=== PATIENT | female | born 1945 | race Caucasian/White ===

== ENCOUNTER 2017-05-01 12:43 | Emergency (ER) | payer MEDICARE, OTHER ==
[~2017-05-01] VITALS: Ht 157.5 cm; Wt 126.1 kg
[~2017-05-01 12:43] MED LIST: ACTOS 30 MG TAB30 MG; ADULT LOW DOSE81 MG; ALBUTEROL2.5 MG/31 INH; AMLODIPINE BESY10 MG; BACTRIM DS TAB1 EACH PO; BAYER CHEWABLE81 MG PO; BUSPIRONE HCL10 MG PO; CARDIZEM CD 30300 M1 PO; CIPRO250 M1 PO; COLACE100 MG PO; COMBIVENT RESPIM4 GM IH; COMBIVENT RESPIM4 GM INH; COZAAR 50 MG TA50 M2; COZAAR 50 MG TA50 M2 PO; COZAAR100 MG PO; CRESTOR20 MG PO; DALIRESP500 MCG PO; DILTIAZEM PO; ELIQUIS5 MG PO; ERGOCALCIF50000 UNIT; EXFORGEHCT; GLUCOPHAGE XR500 MG PO; GLUCOPHAGE500 MG PO; HYDROCHLOROTHIA25 M2 PO; IBUPROFEN 600600 M1 PO; INSULIN ASPART; IRON325; IRON325 PO; KEFLEX500 MG PO; KLOR-CON 1010 MEQ PO; LANTUS SUBQ; LANTUSSOLASTAR; LASIX 20 MG TAB20 MG; LASIX 40 MG TAB40 M1 PO; LASIX 40 MG TAB40 M2 PO; LEVAQUIN 500 M500 M2 PO; LEVAQUIN 500 M500 MG PO; LOPRESSOR50 PO; MUCINEX600 MG PO; NEURONTIN 300300 M1 PO; NEXIUM40 MG; NEXIUM40 MG PO; NIASPAN 500 MG500 M1; NORCO 5-325 TA1 EACH PO; NORTRIPTYLINE H50 M3 PO; NOVOLOG FL100 UNIT/M; NOVOLOG FL100 UNIT/M SUBQ; NOVOLOG100 UNIT/1 SUBQ; NYSTATIN 1100000 U/M TOP; NYSTATIN15 G3; ONDANSETRON HCL4 M2 PO; PAMELOR50 MG PO; POTASSIUM GLUCO99 M2 PO; PRED FORTE 1% EY5 M1 INTRAOCULR; PRED-FORTE OPHTH1 M1 OPHTHALMIC; PRIMIDONE 250M250 M1 PO; PRIMIDONE50 MG PO; PRINIVIL20 MG; PROTONIX40 M1 PO; PROVENTIL HFA6.7 G1 INH; PROVENTIL17 G1; SINGULAIR 10 MG10 M1 PO; SLOW RELEASE I140 MG; SYNTHROID137 MCG; SYNTHROID150 MCG PO; TESSALON PERLE100 MG PO; TOPROL XL50 MG PO; TRESIBA FL200 UNIT/1 SUBQ; UNSURE OF MEDS; VENTOLIN HFA 1818 GM INH; VICODIN 5-5001 EACH; VITAMIN D250000 UNIT; VITAMIN D3400 UNIT PO; WELCHOL3.75 GM; XIBROM5 ML; ZOCOR40 MG; ZOFRAN 4 MG ORAL4 MG PO; ZOFRAN4 MG PO; ZOLOFT100 MG; ZOLOFT100 MG PO; ZOLOFT50 MG PO; ZPAK PO; ZYRTEC10 M5 PO; novolog flexpen
[2017-05-01 13:23] LABS: URINE BILIRUBIN NEGATIVE (Negative); URINE BLOOD NEGATIVE (Negative); URINE CLARITY CLEAR; URINE COLOR YELLOW; URINE GLUCOSE-RANDOM NEGATIVE (Negative); URINE KETONES NEGATIVE (Negative); URINE LEUKOCYTES-REFLEX TRACE (Negative); URINE NITRITE-REFLEX NEGATIVE (Negative); URINE PROTEIN NEGATIVE (Negative); URINE UROBILINOGEN 0.2 E.U./dl (0.2-1.0)
[2017-05-01 13:34] LABS: ABSOLUTE BASOPHILS 0.1 thou/uL (0.0-0.2); ABSOLUTE EOSINOPHILS 0.1 thou/uL (0.0-0.7); ABSOLUTE LYMPHOCYTES 1.4 thou/uL (0.8-5.3); ABSOLUTE MONOCYTES 0.7 thou/uL (0.0-1.2); BASOPHILS 0.6 %; EOSINOPHILS 0.9 %; HEMATOCRIT 35.7 % (37.0-47.0); HEMOGLOBIN 11.8 gm/dL (12.0-15.0); LYMPHOCYTES 10.3 %; MCH 28.2 pg (26.0-34.0); MCHC 32.9 g/dL (28.0-37.0); MCV 85.5 fL (80.0-100.0); MONOCYTES 5.3 %; MPV 8.6 fl. (7.2-11.1); NUCLEATED RBCS 0 /100WBC; PLATELET COUNT* 297 thou/uL (150-400); POLYS 82.9 %; RBC 4.18 mil/uL (4.20-5.00); RDW-CV 14.1 % (10.5-14.5); WBC 13.3 thou/uL (4.0-11.0)
[2017-05-01 13:34] LABS: CRYSTALS None Seen /LPF (None Seen); HYALINE CASTS 0-3 Few /LPF (None Seen); MUCUS 0-3 Light strn/LPF (None Seen); SQUAMOUS >10 Many /LPF (0-3)
[2017-05-01 13:35] LABS: URINE RBC 0-2 Rare /HPF (0-2); URINE WBC-REFLEX 0-5 Rare /HPF (0-5)
[2017-05-01 13:54] LABS: ANION GAP 8 mmol/L (7-16); BUN 19 mg/dL (7-18); CALCIUM 8.4 mg/dL (8.5-10.1); CHLORIDE 100 mmol/L (98-107); CO2 28 mmol/L (21-32); CREATININE 1.2 mg/dL (0.6-1.3); GLUCOSE 214 mg/dL (70-99); POTASSIUM 4.2 mmol/L (3.5-5.1); SODIUM 136 mmol/L (136-145)
[2017-05-01 14:01] LABS: ALBUMIN 3.3 g/dL (3.4-5.0); ALKALINE PHOSPHATASE 118 U/L (46-116); LIPASE 71 U/L (73-393); SGOT 17 U/L (15-37); SGPT 24 U/L (30-65); TOTAL BILIRUBIN 0.7 mg/dL (<0.1-1.0); TOTAL PROTEIN 7.8 g/dL (6.4-8.2); TROPONIN-I LEVEL <0.06 ng/mL (<0.06)
[2017-05-01] MEDS ORDERED: DIFLUCAN200 MG PO (14:37)
[2017-05-01] MEDS ORDERED: NYSTATIN 100,0015 G1 TOP (14:37)
[2017-05-01] MEDS ORDERED: MACROBID 100 M100 M1 PO (14:38)
[2017-05-01 14:51] VITALS: BP 141/60
== END 2017-05-01 14:52 | disposition home or self-care (01) ==
LOC: M.ERS 12:43
PROVIDERS: Physician Assistant
DX: N39.0 Urinary tract infection, site not specified (principal); B37.2 Candidiasis of skin and nail; R33.9 Retention of urine, unspecified; J44.9 Chronic obstructive pulmonary disease, unspecified; E03.9 Hypothyroidism, unspecified; E11.40 Type 2 diabetes mellitus with diabetic neuropathy, unspecified; Z79.4 Long term (current) use of insulin; Z91.040 Latex allergy status; Z88.2 Allergy status to sulfonamides; Z91.012 Allergy to eggs; Z77.22 Contact with and (suspected) exposure to environmental tobacco smoke (acute) (chronic)

== ENCOUNTER 2017-07-13 16:59 | Inpatient (IN) | payer MEDICARE, OTHER ==
[~2017-07-13] VITALS: Ht 157.5 cm; Wt 124.8 kg
[~2017-07-13 16:59] MED LIST changes: +DIFLUCAN200 MG PO; +MACROBID 100 M100 M1 PO; +NYSTATIN 100,0015 G1 TOP
[2017-07-13 17:05] VITALS: BP 190/86
[2017-07-13 18:32] LABS: ABSOLUTE BASOPHILS 0.1 thou/uL (0.0-0.2); ABSOLUTE LYMPHOCYTES 1.3 thou/uL (0.8-5.3); ABSOLUTE MONOCYTES 0.9 thou/uL (0.0-1.2); ABSOLUTE NEUTROPHILS 9.4 thou/uL (1.6-8.1); BASOPHILS 0.7 %; EOSINOPHILS 0.4 %; HEMATOCRIT 38.7 % (37.0-47.0); HEMOGLOBIN 12.6 gm/dL (12.0-15.0); LYMPHOCYTES 11.1 %; MCHC 32.5 g/dL (28.0-37.0); MCV 83.1 fL (80.0-100.0); MONOCYTES 7.5 %; MPV 8.5 fl. (7.2-11.1); NUCLEATED RBCS 0 /100WBC; PLATELET COUNT* 288 thou/uL (150-400); POLYS 80.3 %; RBC 4.65 mil/uL (4.20-5.00); RDW-CV 14.3 % (10.5-14.5); WBC 11.7 thou/uL (4.0-11.0)
[2017-07-13 18:41] LABS: ANION GAP 8 mmol/L (7-16); BUN 12 mg/dL (7-18); CALCIUM 8.3 mg/dL (8.5-10.1); CHLORIDE 101 mmol/L (98-107); CO2 27 mmol/L (21-32); CREATININE 0.9 mg/dL (0.6-1.3); GLUCOSE 212 mg/dL (70-99); POTASSIUM 3.7 mmol/L (3.5-5.1); SODIUM 136 mmol/L (136-145)
[2017-07-13 18:48] LABS: ALBUMIN 3.2 g/dL (3.4-5.0); ALKALINE PHOSPHATASE 111 U/L (46-116); SGOT 10 U/L (15-37); SGPT 10 U/L (30-65); TOTAL BILIRUBIN 0.9 mg/dL (<0.1-1.0); TOTAL PROTEIN 7.6 g/dL (6.4-8.2); TROPONIN-I LEVEL <0.06 ng/mL (<0.06)
[2017-07-13 19:56] LABS: URINE BILIRUBIN NEGATIVE (Negative); URINE BLOOD 1+ (Negative); URINE CLARITY CLOUDY; URINE COLOR YELLOW; URINE GLUCOSE-RANDOM TRACE (Negative); URINE KETONES NEGATIVE (Negative); URINE LEUKOCYTES-REFLEX 1+ (Negative); URINE NITRITE-REFLEX POSITIVE (Negative); URINE PROTEIN 2+ (Negative); URINE SPECIFIC GRAVITY 1.025 (1.005-1.030)
[2017-07-13 20:00] VITALS: BP 157/69
[2017-07-13 20:11] LABS: SQUAMOUS >10 Many /LPF (0-3)
[2017-07-13 20:12] LABS: BACTERIA-REFLEX >30 Many /HPF (None Seen); URINE WBC-REFLEX 6-15 Few /HPF (0-5)
[2017-07-13 20:14] LABS: HYALINE CASTS 0-3 Few /LPF (None Seen); MUCUS None Seen strn/LPF (None Seen)
[2017-07-13 20:15] LABS: AMORPHOUS URATES Many /LPF (None Seen); URINE RBC 0-2 Rare /HPF (0-2)
[2017-07-13 21:05] VITALS: BP 150/64
[2017-07-14] VITALS: BP 177/65
--- NOTE | 2017-07-14 03:43 | NUR ---
PATIENT RESTING MOST OF NIGHT. ADMITED TO THE FLOOR AT 2200 FOR PNEUMONIA AND UTI. DAUGHTER REPORTS PATIENT HAS HISTORY OF GETTING URINARY TRACT INFECTIONS AND WAS ADMITTED BEFORE. LIVES ALONE, FAMILY ASSIST. HOME HEALTH FOR REHAB IN PAST. PATIENT WAS 94 PERCENT O2 SAT ON 2 LITERS. TAKING OFF TO WALK TO BR WITHOUT DIFFICULTIES. BED IN LOW POSITION, CALL LIGHT IN REACH, BED ALARM ON. NO SIGN OF DISTRESS. CONT. WITH PLAN OF CARE.
[2017-07-14 04:00] VITALS: BP 191/79
[2017-07-14 05:17] LABS: HEMOGLOBIN 12.8 gm/dL (12.0-15.0); MCH 27.5 pg (26.0-34.0); MCHC 32.7 g/dL (28.0-37.0); MCV 84.1 fL (80.0-100.0); MPV 8.8 fl. (7.2-11.1); RBC 4.63 mil/uL (4.20-5.00); RDW-CV 14.3 % (10.5-14.5); WBC 10.4 thou/uL (4.0-11.0)
[2017-07-14 05:53] LABS: ALBUMIN 3.3 g/dL (3.4-5.0); CALCIUM 8.7 mg/dL (8.5-10.1); CREATININE 1.2 mg/dL (0.6-1.3); POTASSIUM 4.2 mmol/L (3.5-5.1); TOTAL BILIRUBIN 0.7 mg/dL (<0.1-1.0); TOTAL PROTEIN 7.5 g/dL (6.4-8.2)
[2017-07-14 08:00] VITALS: BP 166/56
--- NOTE | 2017-07-14 10:17 | EKG ---
[place] [address] ELECTROCARDIOGRAM REPORT Name: MOUSTAPHA HOLM Room: [address] IN [facility].#: [id number] Admission: 07/13/17 Attend Phys: Connor Campbell Discharge: Date of : 43 Report #: [id number] THIS REPORT FOR: //name// [facility] ED Test Date: 2017-07-13 Test Time: 18:46:10 Pat Name: MOUSTAPHA HOLM Department: Room: Gender: F Sandstone Splitter: Analy GALO : 1945 Requested By: Zulema Sevilla Order Number: [id number] MD: Nolberto Simpson Measurements Intervals [place] Rate: 77 P: 187 ID: [id number] QRS: -75 QRSD: 175 T: 99 QT: 456 QTc: 517 Interpretive Statements Ventricular-paced complexes No further analysis attempted due to paced rhythm Baseline wander in lead(s) V4 Compared to ECG 11/21/2015 21:50:06 Atrial fibrillation no longer present Electronically Signed On 07-14-2017 10:17:11 CDT by Nolberto Simpson [email or web address] <ELECTRONICALLY SIGNED> By: Nolberto Simpson MD, [facility] 07/14/17 1017 1846 1846 Nolberto Simpson MD, [facility] /EPI
--- NOTE | 2017-07-14 11:24 | NUR ---
RECEIVED REPORT FROM NANCY AND ASSUMED CARE OF PT @ 0900.PT IS A/O X3,VSS,TRACING V PACED WITH PVC ON THE MONITOR.LUNG SOUNDS ARE CLEAR DIMINSHED.LAST BM WAS TODAY.IV RIGHT FOREARM PATENT AND SALINE LOCKED.PT IS CALM AND COOPERATIVE WITH NO C/O PAIN AT TIME OF ASSESSMENT.PT IS UP AD PRASHANTH TO BATHROOM.PT LEFT RESTING IN BED WITH CALL LIGHT IN PLACE. WILL CONTINUE TO MONITOR.
[2017-07-14 12:39] VITALS: BP 123/42
--- NOTE | 2017-07-14 13:22 | NUR ---
Nutrition: Consult received for "DM." Pt on insulin. BG 355, albumin 3.3. H/o OBE, COPD, CHF. Wt: 277#. Pt not in room at time of visit. Diet changed to CHO controled with 2gm Na restriction. RD left handouts on DM diet on bedside table for pt. RD contact info provided.
--- NOTE | 2017-07-14 15:22 | NUR ---
Pt is A&O. Resides at home alone. Independent with IADLS. Family provides meals and assist with cooking and family does all of the driving. Pt has a walker and cane that she can use if needed. Wears home o2, provided through [employer] and a cpap through [employer]. Hx of HH with [facility] and [facility]. Pt anticipates dc tomorrow. No needs anticiapted.
--- NOTE | 2017-07-14 15:44 | 2DMMODE ---
[place] [address] 2 D/M-MODE ECHOCARDIOGRAM Name: MOUSTAPHA HOLM Room: [address] IN [facility]#: [id number] Admission: 07/13/17 Attend Phys: Morgan Chua Discharge: Date of : 43 Date of Service: 07/14/17 1543 Report #: [id number] THIS REPORT FOR: //name// APPROVED REPORT Study performed: 07/14/2017 10:57:52 EXAM: Comprehensive 2D, Doppler, and color-flow Echocardiogram Patient Location: In-Patient Room #: [facility] Status: routine BSA: 2.20 HR: 80 bpm BP: 166/56 mmHg Rhythm: NSR Other Information Study Quality: Technically Difficult Technically limited study due to body habitus. Indications Dyspnea Echo Enhancing Agent Indication: Endocardial border delineation Agent(s) / Amount(s) Used: Optison 3 cc 2D Dimensions IVSd: 13.83 (7-11mm) LVOT Diam: 19.06 (18-24mm) LVDd: 55.77 mm PWd: 9.11 (7-11mm) Ascending Ao: 29.32 (22-36mm) LVDs: 37.19 (25-40mm) Aortic Root: 30.03 mm Volumes Left Atrial Volume (Systole) LA ESV Index: 30.00 mL/m2 Aortic Valve AoV Peak Félix.: 2.04 m/s AO Peak Gr.: 16.66 mmHg LVOT Max P.91 mmHg AO Mean Gr.: 10.55 mmHg LVOT Mean P.46 mmHg LVOT Max V: 0.85 m/s AO V2 VTI: 44.68 cm LVOT Mean V: 0.56 m/s CLAUDE (VTI): 1.23 cm2 LVOT V1 VTI: 19.32 [place] [address] 2 D/M-MODE ECHOCARDIOGRAM Name: MOUSTAPHA HOLM Room: [address] IN ..#: [id number] Admission: 07/13/17 Attend Phys: Morgan Chua Discharge: Date of : 43 Date of Service: 07/14/17 1543 Report #: [id number] Mitral Valve E/A Ratio: 1.45 MV Decel. Time: 223.05 ms MV E Max Félix.: 1.56 m/s MV PHT: 64.68 ms MVA (PHT): 3.40 cm2 TDI E/Lateral E': 31.20 E/Medial E': 19.50 Medial E' Félix.: 0.08 m/s Lateral E' Félix.: 0.05 m/s Pulmonary Valve PV Peak Félix.: 1.04 m/s PV Peak Gr.: 4.34 mmHg Tricuspid Valve TR Peak Gr.: 37.50 mmHg RVSP: 42.00 mmHg Left Ventricle The left ventricle is normal size. severe hypokinesis noted of the apex There is normal left ventricular wall thickness. Left ventricular systolic function is mildly decreased. LVEF is 40-45%. The left ventricular diastolic function is normal. Right Ventricle The right ventricle is normal size. The right ventricular systolic function is normal. Pacemaker lead is present in the right ventricle. Atria Left atrium is mildly dilated. The right atrium size is normal. Aortic Valve Moderate aortic valve sclerosis. No aortic regurgitation is present. Mild aortic stenosis. Mitral Valve There is mitral annular calcification. Trace mitral regurgitation. No evidence of mitral valve stenosis. Tricuspid Valve The tricuspid valve is normal in structure. Trace tricuspid regurgitation. The RVSP is 40-45 mmHg. [place] [address] 2 D/M-MODE ECHOCARDIOGRAM Name: MOUSTAPHA HOLM Room: [address] IN [facility]#: [id number] Admission: 07/13/17 Attend Phys: Morgan Chua Discharge: Date of : 43 Date of Service: 07/14/17 1543 Report #: [id number] Pulmonic valve is not well visualized. There is no pulmonic valvular regurgitation. Great Vessels The aortic root is normal in size. IVC is not well visualized. Pericardium There is no pericardial effusion. <Conclusion> LVEF is 40-45%. Left atrium is mildly dilated. Mild aortic stenosis. severe hypokinesis noted of the apex Trace tricuspid regurgitation. The RVSP is 40-45 mmHg. <ELECTRONICALLY SIGNED> By: Nolberto Simpson MD, FACC 07/14/17 1543 1543 1543 Nolberto Simpson MD, FACC /INF
[2017-07-14 16:18] VITALS: BP 128/49
--- NOTE | 2017-07-14 18:36 | NUR ---
VSS,CARDIAC MONITORING IN PLACE WITH NO CHANGES THIS SHIFT.PT REMAINS ON 2L O2 NC.PT PROGRESSING TOWARDS GOALS.PT HAS DENIED PAIN THIS SHIFT.IV ANTIBIOTICS COMPLETED.BLOOD GLUCOSE MONITORED.PT HAS BEEN UP AD PRASHANTH IN ROOM.HOURLY ROUNDING COMPLETED FOR PT SAFETY.CALL LIGHT IN PLACE.WILL CONTINUE TO MONITOR FOR DURATION OF SHIFT.
[2017-07-14 20:30] VITALS: BP 147/63
[2017-07-15] VITALS: BP 120/39
[2017-07-15 04:00] VITALS: BP 180/62
[2017-07-15 04:55] LABS: HEMATOCRIT 36.9 % (37.0-47.0); HEMOGLOBIN 12.1 gm/dL (12.0-15.0); MCHC 32.9 g/dL (28.0-37.0); MPV 9.2 fl. (7.2-11.1); NUCLEATED RBCS 0 /100WBC; PLATELET COUNT* 295 thou/uL (150-400); RDW-CV 14.7 % (10.5-14.5); WBC 15.5 thou/uL (4.0-11.0)
[2017-07-15 05:04] LABS: CREATININE 1.1 mg/dL (0.6-1.3); MAGNESIUM 1.8 mg/dL (1.8-2.4); POTASSIUM 4.3 mmol/L (3.5-5.1)
[2017-07-15 05:47] LABS: CALCIUM 8.3 mg/dL (8.5-10.1)
[2017-07-15 06:10] LABS: ABSOLUTE LYMPHOCYTES 1.2 thou/uL (0.8-5.3); ABSOLUTE NEUTROPHILS 14.3 thou/uL (1.6-8.1)
[2017-07-15 06:11] LABS: PLATELET ESTIMATE ADEQUATE
--- NOTE | 2017-07-15 06:49 | NUR ---
ASSUMED PT CARE AT 1930. ASSESSMENT COMPLETED CHARTED. PT GOT UP DURING THE NIGHT SEVERAL TIMES TO USE RESTROOM. NO C/O PAIN OR DISCOMFORT. WILL CONTINUE TO MONITOR.
[2017-07-15 07:55] VITALS: BP 144/55
--- NOTE | 2017-07-15 07:55 | NUR ---
RECEIVED REPORT FROM JANI AND ASSUMED REPORT OF PT @ 8449.PT IS A/O X4,VSS,TRACING V PACED ON THE MONITOR.LUNG SOUNDS ARE CLEAR DIMINSHED.LAST BM WAS TODAY.IV RIGHT FOREARM PATENT AND SALINE LOCKED.PT IS CALM AND COOPERATIVE WITH NO C/O PAIN AT TIME OF ASSESSMENT.PT IS UP AD PRASHANTH IN ROOM.PT LEFT RESTING AT EDGE OF BED WITH CALL LIGHT IN PLACE.WILL CONTINUE TO MONITOR FOR DURATION OF SHIFT. SAW PT AND OK FOR DISCHARGE.CARDIAC REHAB NURSE CALLED TO SEE PT AND SET UP CARDIAC REHAB FOLLOW UP APPOINTMENT.
[2017-07-15] MEDS ORDERED: CEFDINIR300 MG PO (09:45)
[2017-07-15] MEDS ORDERED: PREDNISONE 20 M20 MG PO (09:45)
[2017-07-15] MEDS ORDERED: LASIX 40 MG TAB40 M1 PO (09:45)
[2017-07-15] MEDS ORDERED: AZITHROMYCIN 2250 MG PO (09:45)
[2017-07-15 10:25] VITALS: BP 144/55
--- NOTE | 2017-07-15 12:37 | NUR ---
PT OK FOR DISCHARGE.FOLLOW UP APPOINTMENT SCHEDULED FOR 07/21/17 @ 1045 WITH PCP.PAPERWORK COMPLETED AND GIVEN TO PT.SCRIPTS GIVEN WITH EDUCATION.ALL PERSONAL BELONGINGS PACKED AND TAKEN WITH PT.IV REMOVED.HEART MONITOR REMOVED AND RETURNED TO NURSING STATION.PT WHEELED OUT BY NURSING STAFF TO PERSONAL VEHICLE.
== END 2017-07-15 12:40 | disposition home or self-care (01) | DRG 291 ==
LOC: M.ERS 16:59 → M.2W 20:20 → M.TBA-ER 20:20 → M.2W 21:38
PROVIDERS: Emergency Medicine; Internal Medicine; Personal Emergency Response Attendant; ADMIT Internal Medicine
DX: I50.33 Acute on chronic diastolic (congestive) heart failure (principal); J96.21 Acute and chronic respiratory failure with hypoxia; J84.9 Interstitial pulmonary disease, unspecified; J44.1 Chronic obstructive pulmonary disease with (acute) exacerbation; Z68.43 Body mass index [BMI] 50.0-59.9, adult; J44.0 Chronic obstructive pulmonary disease with (acute) lower respiratory infection; H54.62 Unqualified visual loss, left eye, normal vision right eye; E11.9 Type 2 diabetes mellitus without complications; E03.9 Hypothyroidism, unspecified; E11.40 Type 2 diabetes mellitus with diabetic neuropathy, unspecified; F32.9 Major depressive disorder, single episode, unspecified; G47.33 Obstructive sleep apnea (adult) (pediatric); E66.01 Morbid (severe) obesity due to excess calories; Z95.0 Presence of cardiac pacemaker; Z88.2 Allergy status to sulfonamides; Z88.8 Allergy status to other drugs, medicaments and biological substances; Z91.012 Allergy to eggs; Z91.040 Latex allergy status; Z82.49 Family history of ischemic heart disease and other diseases of the circulatory system; I35.0 Nonrheumatic aortic (valve) stenosis; I34.0 Nonrheumatic mitral (valve) insufficiency; Z79.899 Other long term (current) drug therapy

== ENCOUNTER 2017-08-08 14:58 | Emergency (ER) | payer MEDICARE, OTHER ==
[~2017-08-08] VITALS: Ht 157.5 cm; Wt 123.4 kg
[~2017-08-08 14:58] MED LIST changes: +AZITHROMYCIN 2250 MG PO; +CEFDINIR300 MG PO; +PREDNISONE 20 M20 MG PO
[2017-08-08] MEDS ORDERED: KEFLEX500 M1 PO (15:36)
[2017-08-08 15:49] VITALS: BP 160/66
== END 2017-08-08 15:49 | disposition home or self-care (01) ==
LOC: M.ERS 14:58
DX: L03.116 Cellulitis of left lower limb (principal); J44.9 Chronic obstructive pulmonary disease, unspecified; F32.9 Major depressive disorder, single episode, unspecified; E03.9 Hypothyroidism, unspecified; I50.9 Heart failure, unspecified; E11.40 Type 2 diabetes mellitus with diabetic neuropathy, unspecified; Z77.22 Contact with and (suspected) exposure to environmental tobacco smoke (acute) (chronic); Z91.040 Latex allergy status; Z88.1 Allergy status to other antibiotic agents; Z91.012 Allergy to eggs; Z79.4 Long term (current) use of insulin

== ENCOUNTER 2017-09-07 23:06 | Emergency (ER) | payer MEDICARE, OTHER ==
[~2017-09-07] VITALS: Ht 162.6 cm; Wt 127.0 kg
[~2017-09-07 23:06] MED LIST changes: +KEFLEX500 M1 PO
[2017-09-07 23:48] VITALS: BP 154/64
== END 2017-09-07 23:48 | disposition home or self-care (01) ==
LOC: M.ERS 23:06
DX: R04.0 Epistaxis (principal); F32.9 Major depressive disorder, single episode, unspecified; G47.33 Obstructive sleep apnea (adult) (pediatric); E66.01 Morbid (severe) obesity due to excess calories; J44.9 Chronic obstructive pulmonary disease, unspecified; E03.9 Hypothyroidism, unspecified; E11.40 Type 2 diabetes mellitus with diabetic neuropathy, unspecified; I50.30 Unspecified diastolic (congestive) heart failure; J96.11 Chronic respiratory failure with hypoxia; Z88.5 Allergy status to narcotic agent; Z91.040 Latex allergy status; Z88.2 Allergy status to sulfonamides; Z91.012 Allergy to eggs; Z68.42 Body mass index [BMI] 45.0-49.9, adult; Z79.4 Long term (current) use of insulin

== ENCOUNTER 2017-09-14 22:27 | Inpatient (IN) | payer MEDICARE, OTHER ==
[~2017-09-14] VITALS: Ht 157.5 cm; Wt 126.1 kg
[2017-09-14 22:28] VITALS: BP 201/63
[2017-09-14 23:05] LABS: ABSOLUTE BASOPHILS 0.1 thou/uL (0.0-0.2); ABSOLUTE EOSINOPHILS 0.2 thou/uL (0.0-0.7); ABSOLUTE MONOCYTES 0.7 thou/uL (0.0-1.2); ABSOLUTE NEUTROPHILS 6.8 thou/uL (1.6-8.1); BASOPHILS 1.2 %; EOSINOPHILS 1.6 %; HEMATOCRIT 38.2 % (37.0-47.0); HEMOGLOBIN 12.5 gm/dL (12.0-15.0); MCH 27.3 pg (26.0-34.0); MCHC 32.7 g/dL (28.0-37.0); MCV 83.7 fL (80.0-100.0); MONOCYTES 7.2 %; NUCLEATED RBCS 0 /100WBC; PLATELET COUNT* 316 thou/uL (150-400); RBC 4.56 mil/uL (4.20-5.00); RDW-CV 15.3 % (10.5-14.5); WBC 9.8 thou/uL (4.0-11.0)
[2017-09-14 23:14] LABS: ANION GAP 8 mmol/L (7-16); BUN 13 mg/dL (7-18); CALCIUM 8.8 mg/dL (8.5-10.1); CHLORIDE 103 mmol/L (98-107); CO2 27 mmol/L (21-32); CREATININE 1.1 mg/dL (0.6-1.3); GLUCOSE 399 mg/dL (70-99); POTASSIUM 4.2 mmol/L (3.5-5.1); SODIUM 138 mmol/L (136-145)
[2017-09-14 23:15] LABS: URINE BILIRUBIN NEGATIVE (Negative); URINE BLOOD TRACE (Negative); URINE CLARITY CLEAR; URINE COLOR YELLOW; URINE GLUCOSE-RANDOM 3+ (Negative); URINE KETONES NEGATIVE (Negative); URINE LEUKOCYTES-REFLEX TRACE (Negative); URINE NITRITE-REFLEX NEGATIVE (Negative); URINE PROTEIN 1+ (Negative); URINE UROBILINOGEN 0.2 E.U./dl (0.2-1.0)
[2017-09-14 23:21] LABS: ALBUMIN 3.1 g/dL (3.4-5.0); ALKALINE PHOSPHATASE 136 U/L (46-116); SGOT 12 U/L (15-37); SGPT 15 U/L (30-65); TOTAL BILIRUBIN 0.5 mg/dL (<0.1-1.0); TOTAL PROTEIN 7.2 g/dL (6.4-8.2); TROPONIN-I LEVEL <0.06 ng/mL (<0.06)
[2017-09-14 23:28] LABS: CASTS None Seen /LPF (None Seen); SQUAMOUS >10 Many /LPF (0-3)
[2017-09-14 23:30] LABS: CRYSTALS None Seen /LPF (None Seen); URINE RBC 3-10 Few /HPF (0-2)
[2017-09-15 01:25] VITALS: BP 164/80
[2017-09-15 02:35] LABS: HEMOGLOBIN 12.5 gm/dL (12.0-15.0); MCH 27.3 pg (26.0-34.0); MCHC 32.1 g/dL (28.0-37.0); MCV 84.9 fL (80.0-100.0); MPV 9.5 fl. (7.2-11.1); RBC 4.6 mil/uL (4.20-5.00); RDW-CV 15.3 % (10.5-14.5); WBC 11.6 thou/uL (4.0-11.0)
[2017-09-15 03:08] LABS: ALBUMIN 3.2 g/dL (3.4-5.0); CALCIUM 8.4 mg/dL (8.5-10.1); TOTAL BILIRUBIN 0.5 mg/dL (<0.1-1.0); TOTAL PROTEIN 6.9 g/dL (6.4-8.2)
--- NOTE | 2017-09-15 06:44 | NUR ---
Pt admitted from ED at 0130. Denies pain/nausea/diarrhea. VSS, though SBP 160. Afib/flutter w/ V-paced complexes per EKG; not on telemetry. Pt has UTI. Reports she is hopeful of being discharged today. Will continue to monitor.
[2017-09-15 07:55] VITALS: BP 165/85
--- NOTE | 2017-09-15 11:00 | NUR ---
Pt is A&O. Resides at home alone. Supportive family. Pt is independent with ADLs, Pt stated that her children normally bring her meals, but Pt is able to clean her home. Children take her to and from appts/errands. Pt wears home o2 through [facility] and has a cpap through [employer]. Pt has a walker, cane and wc at home that she can use. Hx of [facility] and [facility] HH. Pt to dc to home today. CM contacted [facility] and they do not have any nurse's available for at least 1 week, CM will fax referral to [facility]. Family to transport home and bring portable tank. Following.
--- NOTE | 2017-09-15 11:07 | NUR ---
RECEIVED REPORT FROM DEBBIE AND ASSUMED CARE OF PT @ 6588.PT IS A/O,VSS,MED-SURG STATUS.LUNG SOUNDS ARE CLEAR DIMINSHED.PT REMAINS ON 2L O2 NC.LAST BM WAS YESTERDAY.IV LEFT HAND PATENT WITH FLUIDS RUNNING.PT IS CLAM AND COOPERATIVE WITH NO C/O PAIN.PT IS UP WITH ASSIST OF ONE TO BATHROOM.PT LEFT SITTING ON EDGE OF BED WITH FAMILY AT BEDSIDE.WILL CONTINUE TO MONITOR.
--- NOTE | 2017-09-15 11:16 | EKG ---
[place] [address] ELECTROCARDIOGRAM REPORT Name: MOUSTAPHA HOLM Room: [address] ADM IN .R.#: [id number] Admission: 09/15/17 Attend Phys: Elo Romo MD Discharge: Date of : 43 Report #: [id number] THIS REPORT FOR: //name// [facility] ED Test Date: 2017-09-14 Test Time: 23:45:21 Pat Name: MOUSTAPHA HOLM Department: Room: [facility] Gender: F Assembly Repairer: AJ : 1945 Requested By: Pat Elias Order Number: [id number] MD: Nolberto Simpson Measurements Intervals [place] Rate: 69 P: [place]: QRS: -78 QRSD: 182 T: 109 QT: 504 QTc: 540 Interpretive Statements V-paced complexes No further analysis attempted due to paced rhythm Compared to ECG 07/13/2017 18:46:10 No significant changes Electronically Signed On 09-15-2017 11:16:12 CDT by Nolberto Simpson [email or web address] <ELECTRONICALLY SIGNED> By: Nolberto Simpson MD, [facility] 09/15/17 1116 2345 2345 Nolberto Simpson MD, [facility] /EPI
[2017-09-15 11:22] VITALS: BP 165/85
--- NOTE | 2017-09-15 11:31 | NUR ---
faxed dc orders to [facility] for homehealth services. patient will dc today . waiting for auth from home health.
--- NOTE | 2017-09-15 11:40 | NUR ---
Pt will dc today with homehealth services from [facility].Spoke with them on the phone . we are good to go.
--- NOTE | 2017-09-15 12:07 | NUR ---
PT OK FOR DISCHARGE.PAPERWORK COMPLETED AND GIVEN TO PT.SCIPTS GIVEN WITH EDUCATION.IV REMOVED.ALL PERSONAL BELONGINGS PACKED AND TAKEN WITH PT.WHEELED OUT BY NURSING STAFF TO PERSONAL VEHICLE.
--- NOTE | 2017-09-15 18:24 | NUR ---
PT. DISCHARGED TO HOME PRIOR TO O.T. EVAL WITH HOME HEALTH. PLEASE ORDER FURTHER O.T. SERVICES IF NEEDED.
== END 2017-09-15 12:15 | disposition home health service (06) | DRG 813 ==
LOC: M.ERS 22:27 → M.2W 09-15 00:15 → M.TBA-ER 09-15 00:15 → M.2W 09-15 00:44
PROVIDERS: Emergency Medicine; ADMIT Internal Medicine
DX: D68.32 Hemorrhagic disorder due to extrinsic circulating anticoagulants (principal); N39.0 Urinary tract infection, site not specified; Z68.43 Body mass index [BMI] 50.0-59.9, adult; I16.0 Hypertensive urgency; R04.0 Epistaxis; F32.9 Major depressive disorder, single episode, unspecified; E66.01 Morbid (severe) obesity due to excess calories; I11.0 Hypertensive heart disease with heart failure; J44.9 Chronic obstructive pulmonary disease, unspecified; E03.9 Hypothyroidism, unspecified; G47.33 Obstructive sleep apnea (adult) (pediatric); E21.3 Hyperparathyroidism, unspecified; E11.40 Type 2 diabetes mellitus with diabetic neuropathy, unspecified; Z79.4 Long term (current) use of insulin; Z79.84 Long term (current) use of oral hypoglycemic drugs; Z79.899 Other long term (current) drug therapy; Z91.012 Allergy to eggs; Z91.040 Latex allergy status; Z88.5 Allergy status to narcotic agent; Z88.2 Allergy status to sulfonamides; Z91.048 Other nonmedicinal substance allergy status; Z91.14 Patient's other noncompliance with medication regimen

== ENCOUNTER 2018-01-23 11:17 | Inpatient (IN) | payer MEDICARE, OTHER ==
[~2018-01-23] VITALS: Ht 157.5 cm; Wt 158.8 kg
[~2018-01-23 11:17] MED LIST changes: +PRED FORTE5 ML OPHTHALMIC; -PRED-FORTE OPHTH1 M1 OPHTHALMIC
[2018-01-23 11:19] VITALS: BP 133/52
[2018-01-23] MEDS ORDERED: SYNTHROID200 MCG PO (11:28)
[2018-01-23] MEDS ORDERED: SINGULAIR 10 MG10 M1 PO (11:29)
[2018-01-23] MEDS ORDERED: DEMADEX20 MG PO (11:31)
[2018-01-23 11:55] LABS: ABSOLUTE BASOPHILS 0.1 thou/uL (0.0-0.2); ABSOLUTE EOSINOPHILS 0.1 thou/uL (0.0-0.7); ABSOLUTE LYMPHOCYTES 1.8 thou/uL (0.8-5.3); ABSOLUTE NEUTROPHILS 7.7 thou/uL (1.6-8.1); BASOPHILS 0.6 %; EOSINOPHILS 0.8 %; HEMATOCRIT 40.2 % (37.0-47.0); HEMOGLOBIN 13.4 gm/dL (12.0-15.0); LYMPHOCYTES 17.2 %; MCH 29.1 pg (26.0-34.0); MCHC 33.3 g/dL (28.0-37.0); MCV 87.6 fL (80.0-100.0); MONOCYTES 9.1 %; MPV 9.1 fl. (7.2-11.1); NUCLEATED RBCS 0 /100WBC; PLATELET COUNT* 207 thou/uL (150-400); POLYS 72.3 %; RBC 4.59 mil/uL (4.20-5.00); RDW-CV 15.1 % (10.5-14.5); WBC 10.6 thou/uL (4.0-11.0)
[2018-01-23 12:00] LABS: ANION GAP 6 mmol/L (7-16); BUN 10 mg/dL (7-18); CALCIUM 8.4 mg/dL (8.5-10.1); CHLORIDE 103 mmol/L (98-107); CO2 27 mmol/L (21-32); GLUCOSE 301 mg/dL (70-99); POTASSIUM 3.9 mmol/L (3.5-5.1); SODIUM 136 mmol/L (136-145)
[2018-01-23 12:01] LABS: BE 0.4 mmol/L (-2 to +3); HCO3 25.2 mmol/L (22.0-26.0); PCO2 41.5 mmHg (35.0-45.0); PO2 76.4 mmHg (75.0-100.0); pH 7.402 (7.340-7.450)
[2018-01-23 12:01] LABS: APTT 21.2 Seconds (25.0-31.3); INR 1.2
[2018-01-23 12:12] LABS: ALBUMIN 3.1 g/dL (3.4-5.0); ALKALINE PHOSPHATASE 142 U/L (46-116); LIPASE 55 U/L (73-393); MAGNESIUM 2.1 mg/dL (1.8-2.4); NT-PRO BRAIN NAT PEPTIDE 3085 pg/mL (<300); SGOT 28 U/L (15-37); SGPT 37 U/L (30-65); TOTAL BILIRUBIN 1.2 mg/dL (<0.1-1.0); TOTAL PROTEIN 7.1 g/dL (6.4-8.2); TROPONIN-I LEVEL <0.06 ng/mL (<0.06)
[2018-01-23 12:32] LABS: INFLUENZA A ANTIGEN None Detected (None Detect); INFLUENZA B ANTIGEN None Detected (None Detect)
[2018-01-23 13:20] VITALS: BP 143/52
[2018-01-23 13:30] VITALS: BP 165/75
[2018-01-23 17:10] VITALS: BP 173/82
[2018-01-23 20:09] VITALS: BP 167/74
[2018-01-24] VITALS: BP 186/79
[2018-01-24 04:00] VITALS: BP 176/70
[2018-01-24 04:58] LABS: HEMATOCRIT 39.3 % (37.0-47.0); HEMOGLOBIN 13.3 gm/dL (12.0-15.0); MCH 29.6 pg (26.0-34.0); MCHC 33.8 g/dL (28.0-37.0); MCV 87.6 fL (80.0-100.0); MPV 9.3 fl. (7.2-11.1); RBC 4.49 mil/uL (4.20-5.00); RDW-CV 14.5 % (10.5-14.5)
[2018-01-24 05:40] LABS: ALBUMIN 2.9 g/dL (3.4-5.0); CALCIUM 8.9 mg/dL (8.5-10.1); CREATININE 0.8 mg/dL (0.6-1.3); MAGNESIUM 2.2 mg/dL (1.8-2.4); POTASSIUM 4.1 mmol/L (3.5-5.1); TOTAL BILIRUBIN 0.6 mg/dL (<0.1-1.0); TOTAL PROTEIN 7.3 g/dL (6.4-8.2)
[2018-01-24 08:13] VITALS: BP 176/84
--- NOTE | 2018-01-24 12:30 | EKG ---
[place] [address] ELECTROCARDIOGRAM REPORT Name: MOUSTAPHA HOLM Room: [address] ADM IN .R.#: [id number] Admission: 01/23/18 Attend Phys: Elo Romo MD Discharge: Date of : 43 Report #: [id number] THIS REPORT FOR: //name// [facility] ED Test Date: 2018-01-23 Test Time: 11:37:33 Pat Name: MOUSTAPHA HOLM Department: Room: [facility] Gender: F Supervisor Rice Milling: Connor VAZQUEZ : 1945 Requested By: Kareem Liriano Order Number: [id number] MD: Nolberto Simpson Measurements Intervals [place] Rate: 85 P: [place]: QRS: -71 QRSD: 182 T: 103 QT: 441 QTc: 525 Interpretive Statements sinus rhythm with first degree av block ventricular paced rhythm Baseline wander in lead(s) V6 Compared to ECG 09/14/2017 23:45:21 no change Electronically Signed On 01-24-2018 12:29:56 PHYSICAL THERAPY TECHNICIAN by Nolberto Simpson [email or web address] <ELECTRONICALLY SIGNED> By: Nolberto Simpson MD, [facility] 01/24/18 1229 1137 1137 Nolberto Simpson MD, [facility] /EPI
[2018-01-24 13:06] VITALS: BP 143/67
[2018-01-24 16:25] VITALS: BP 148/53
[2018-01-24 20:00] VITALS: BP 150/51
[2018-01-25] VITALS: BP 150/54
[2018-01-25 04:00] VITALS: BP 145/58
[2018-01-25 04:28] LABS: HEMATOCRIT 36.5 % (37.0-47.0); HEMOGLOBIN 12.4 gm/dL (12.0-15.0); MCH 29.3 pg (26.0-34.0); MCV 86.2 fL (80.0-100.0); MPV 9.4 fl. (7.2-11.1); RBC 4.24 mil/uL (4.20-5.00); RDW-CV 14.7 % (10.5-14.5); WBC 18.2 thou/uL (4.0-11.0)
[2018-01-25 04:50] LABS: CALCIUM 8.8 mg/dL (8.5-10.1); CREATININE 1.1 mg/dL (0.6-1.3); MAGNESIUM 1.9 mg/dL (1.8-2.4); POTASSIUM 3.6 mmol/L (3.5-5.1)
[2018-01-25 08:30] VITALS: BP 146/57
[2018-01-25 12:00] VITALS: BP 146/43
[2018-01-25 16:00] VITALS: BP 141/59
[2018-01-25 20:05] VITALS: BP 140/41
[2018-01-26 00:01] VITALS: BP 153/67
[2018-01-26 04:10] VITALS: BP 147/45
[2018-01-26 04:49] LABS: HEMATOCRIT 40.1 % (37.0-47.0); HEMOGLOBIN 13.4 gm/dL (12.0-15.0); MCH 29.2 pg (26.0-34.0); MCHC 33.4 g/dL (28.0-37.0); MCV 87.6 fL (80.0-100.0); MPV 9.1 fl. (7.2-11.1); RBC 4.57 mil/uL (4.20-5.00); RDW-CV 14.2 % (10.5-14.5); WBC 16.7 thou/uL (4.0-11.0)
[2018-01-26 05:28] LABS: CREATININE 1.1 mg/dL (0.6-1.3); MAGNESIUM 1.8 mg/dL (1.8-2.4); POTASSIUM 3.4 mmol/L (3.5-5.1)
[2018-01-26 08:15] VITALS: BP 159/74
[2018-01-26] MEDS ORDERED: LASIX 40 MG TAB40 M2 PO (10:25)
[2018-01-26] MEDS ORDERED: PREDNISONE 10 M10 MG PO (10:25)
[2018-01-26] MEDS ORDERED: LEVAQUIN 500 M500 M2 PO (10:25)
[2018-01-26] MEDS ORDERED: DILTIAZEM 24HR180 M1 PO (10:25)
[2018-01-26] MEDS ORDERED: COMBIVENT RESPIM4 GM INH (10:25)
[2018-01-26 11:04] VITALS: BP 159/74
== END 2018-01-26 13:22 | disposition home health service (06) | DRG 177 ==
LOC: M.ERS 11:17 → M.3W 12:36 → M.TBA-ER 12:36 → M.3W 13:21
PROVIDERS: Family Medicine; ADMIT Internal Medicine
DX: J15.6 Pneumonia due to other Gram-negative bacteria (principal); I50.33 Acute on chronic diastolic (congestive) heart failure; J44.1 Chronic obstructive pulmonary disease with (acute) exacerbation; J44.0 Chronic obstructive pulmonary disease with (acute) lower respiratory infection; Z68.44 Body mass index [BMI] 60.0-69.9, adult; J96.11 Chronic respiratory failure with hypoxia; F32.9 Major depressive disorder, single episode, unspecified; E11.40 Type 2 diabetes mellitus with diabetic neuropathy, unspecified; G47.33 Obstructive sleep apnea (adult) (pediatric); E66.01 Morbid (severe) obesity due to excess calories; E21.3 Hyperparathyroidism, unspecified; I35.0 Nonrheumatic aortic (valve) stenosis; I34.0 Nonrheumatic mitral (valve) insufficiency; Z88.2 Allergy status to sulfonamides; Z88.6 Allergy status to analgesic agent; Z91.012 Allergy to eggs; Z91.040 Latex allergy status; Z79.2 Long term (current) use of antibiotics; Z79.899 Other long term (current) drug therapy; Z82.49 Family history of ischemic heart disease and other diseases of the circulatory system

== ENCOUNTER 2019-08-02 21:50 | Inpatient (IN) | payer MEDICARE, OTHER ==
[~2019-08-02] VITALS: Ht 157.5 cm; Wt 126.6 kg
--- NOTE | ~2019-08-02 | OP ---
[facility] [place] [address] OPERATIVE REPORT Name: MOUSTAPHA HOLM Room: [address] IN .R.#: [id number] Admission: 08/02/19 Attend Phys: Elo Romo MD Discharge: Date of : 43 Report #: [id number] THIS REPORT FOR: //name// cc: Beatriz Rutherford Kathleen M. DO ~ THIS REPORT FOR: //name// CC: Beatriz Romo DATE OF SERVICE: 08/05/2019 PREOPERATIVE DIAGNOSIS: Comminuted displaced intra-articular right distal femur fracture. POSTOPERATIVE DIAGNOSIS: Comminuted displaced intra-articular right distal femur fracture. PROCEDURE: Open reduction and internal fixation, right intraarticular distal femur fracture. SURGEON: Yung Maria DO RN CVICU: Neo Hein DO ANESTHESIA: General. ANTIBIOTICS: Ancef. INTRAVENOUS FLUIDS: 1400 mL lactated Ringer's. ESTIMATED BLOOD LOSS: 450 mL. COMPLICATIONS: None. SPECIMENS: None. DRAINS: None. CONDITION OF PATIENT: Stable to PACU. IMPLANTS: [place] distal femur plate with cortical screws proximally, locking screws distally, outside of the plate are 2 lag screws in the femur and one 4.0 cannulated screw for the intra-articular Hoffa fragment. INDICATIONS FOR PROCEDURE: The patient admitted with a comminuted [address] [address] OPERATIVE REPORT Name: MOUSTAPHA HOLM Jenaro Room: [address] IN M.R.#: [id number] Admission: 08/02/19 Attend Phys: Elo Romo MD Discharge: Date of : 43 Report #: [id number] intra-articular distal femur fracture. My partner was originally consulted. He asked that I take over care due to complexity of the case. Reviewed risks and complications of the planned surgery with the patient and son. They understood. Consent given. DESCRIPTION OF PROCEDURE: I marked the right lower extremity in the presence of operative team members. Everyone agreed this was correct. She was taken back to the operative suite, briefing performed indicating correct patient, procedure, site, antibiotics and that implants were present and sterile. All team members agreed. General anesthetic administered. She was transferred over to the operative table, well-padded and secured. The right lower extremity was sterilely prepped and draped in standard fashion. Timeout was performed indicating correct patient, procedure, site, antibiotics and that implants were present and sterile. All team members agreed. Hoffa's fragment was of the medial condyle quite intraarticular based on CT scan; therefore, needed to make a swashbuckler type incision, so we can have access to the joint appropriately. Scalpel was taken through skin, full thickness flaps identified. Lateral parapatellar approach was utilized to get the capsule, protecting the meniscus, significantly comminuted intraarticular fracture. We were able to first reduce some of the comminution to the shaft as that keyed in very nicely, placed 2 lag screws that had good purchase. With the Hoffa fragment, we were then able to reduce anatomically within the joint by direct visualization. We placed a K-wire, and then placed a 4.0 cannulated screw partially threaded and sunk this well beneath the cartilage, had good purchase and compressed nicely. C-arm confirmed that the screw was in appropriate position and well contained and not outside of the joint. We had fashioned our distal femur plate and locked the box both proximally and distally after making sure that we had a good reduction reestablish length, alignment, rotation which we had with multiple views of the C-arm. We began drilling and placing distal locking screws. The locking screws engaged nicely into the plate. We then placed cortical screws proximally and they all had adequate purchase. We took the knee through range of motion and our reduction and fixation were stable. We were able to range her knee from 0-95, 95 is most likely [address] she lives as she was restricted more to her obesity due to anything. Saved final C-arm images showed excellent reduction and placement of all hardware. Irrigated thoroughly with normal saline, hemostasis maintained. Closure of the IT band and fascia and our capsule was with 0 Vicryl [id number] interrupted and oversewn with #1 Stratafix. Fat layer closed with 0 Vicryl, subcutaneous closed with 2-0 Monocryl and skin with belkis. Debriefing performed confirming procedure, blood loss and all counts were correct and final. All team members agreed. Sterile Prevena plus dressing applied with good seal and suction. She was extubated and taken to PACU in stable. POSTOPERATIVE COURSE AND EVALUATION: I spoke with her son. Addressed questions, he just stated satisfaction. He was thankful for my time and efforts. She was resting in PACU with stable vital signs, pain controlled, [facility] [address] [place] [address] OPERATIVE REPORT Name: MOUSTAPHA HOLM Room: [address] IN .R.#: [id number] Admission: 08/02/19 Attend Phys: Elo Romo MD Discharge: Date of : 43 Report #: [id number] neurovascularly intact, negative Homans'. Compartments soft and compressible. PACU film shows stable internal fixation and fracture reduction. DVT prophylaxis will be both mechanical and she already came in on oral anticoagulation, I spoke with the hospitalist and let them know that we are okay to resume this. Nonweightbearing range of motion occurs about the joints. Physical therapy consulted, case management to help with discharge planning and call anytime with questions or concerns. By: 1347 1424Yung Maria DO /nt
[~2019-08-02 21:50] MED LIST changes: +CALCIUM CARBON500 MG PO; +COZAAR 50 MG TA50 M1 PO; -COZAAR 50 MG TA50 M2 PO; +DEMADEX20 MG PO; +DILTIAZEM 24HR180 M1 PO; -ERGOCALCIF50000 UNIT; +ERGOCALCIFEROL1 GM PO; +PREDNISONE 10 M10 MG PO; -PRIMIDONE 250M250 M1 PO; +PRIMIDONE 250M250 MG PO; +SYNTHROID200 MCG PO
[2019-08-02 21:57] VITALS: BP 164/61
[2019-08-02 22:39] LABS: ABSOLUTE BASOPHILS 0.1 thou/uL (0.0-0.2); ABSOLUTE EOSINOPHILS 0.1 thou/uL (0.0-0.7); ABSOLUTE LYMPHOCYTES 2.2 thou/uL (0.8-5.3); ABSOLUTE MONOCYTES 0.7 thou/uL (0.0-1.2); ABSOLUTE NEUTROPHILS 9.6 thou/uL (1.6-8.1); BASOPHILS 1.1 %; HEMATOCRIT 42.8 % (37.0-47.0); HEMOGLOBIN 14.2 gm/dL (12.0-15.0); LYMPHOCYTES 17.3 %; MCH 28.4 pg (26.0-34.0); MCHC 33.1 g/dL (28.0-37.0); MCV 85.8 fL (80.0-100.0); MONOCYTES 5.7 %; MPV 8.8 fl. (7.2-11.1); NUCLEATED RBCS 0 /100WBC; PLATELET COUNT* 311 thou/uL (150-400); POLYS 74.9 %; RBC 4.99 mil/uL (4.20-5.00); RDW-CV 14.3 % (10.5-14.5); WBC 12.9 thou/uL (4.0-11.0)
[2019-08-02 22:44] LABS: CALCIUM 8.3 mg/dL (8.5-10.1); CREATININE 1.1 mg/dL (0.6-1.3); POTASSIUM 3.9 mmol/L (3.5-5.1)
[2019-08-03 07:30] VITALS: BP 132/81
--- NOTE | 2019-08-03 13:05 | NUR ---
PATEINT REFUSED HER MORNING MEDICATIONS BECAUSE SHE STATES THAT SHE HAS TO EAT WHEN SHE TAKES THEM. PATIENT IS NPO EXCEPT MEDICATIONS WITH SIPS, SHE WILL BE HAVING SURGERY THIS AFTERNOON.
--- NOTE | 2019-08-03 15:59 | NUR ---
PT.IN SURGERY THIS AFTERNOON. CM WILL SEE IN AM.
--- NOTE | 2019-08-03 18:34 | NUR ---
ASSUMED CARE OF PATIENT AT APPROX 0730. ALERT AND OREINTED X4. ASSESSMENT COMPLETED AND CHARTED. VSS ON 4 LITERS 02. COMPLAINT OF PAIN MANAGED WITH MORPHINE IV. FLUIDS INFUSED ORDERED. PATINT HAD SOME NAUSEA AND VOMITING AT DINNER TIME, GIVEN ZOFRAN WITH RELIEF. FULL BED CHANGE AND BED BATH GIVEN THIS EVENING. PURWICK IN PLACE FOR PATIENT COMFORT. NO OTHER COMPLAINTS THIS SHIFT. FALL PRECAUTIONS IN PLACE. CALL LIGHT WITHIN REACH. HORULY ROUNDS COMPLETED. WILL CONTINUE WITH PLAN OF CARE.
--- NOTE | 2019-08-03 20:00 | NUR ---
PATIENT VOMITING IMMEDIATELY AFTER GIVING DILTIAZEM AND NORCO.
[2019-08-03 21:50] VITALS: BP 159/87
[2019-08-04 04:33] LABS: ABSOLUTE BASOPHILS 0.1 thou/uL (0.0-0.2); ABSOLUTE EOSINOPHILS 0.2 thou/uL (0.0-0.7); ABSOLUTE LYMPHOCYTES 1.5 thou/uL (0.8-5.3); ABSOLUTE NEUTROPHILS 12.8 thou/uL (1.6-8.1); BASOPHILS 0.5 %; HEMATOCRIT 37.5 % (37.0-47.0); HEMOGLOBIN 12.4 gm/dL (12.0-15.0); MCH 28.6 pg (26.0-34.0); MCHC 33.1 g/dL (28.0-37.0); MCV 86.5 fL (80.0-100.0); MONOCYTES 6.2 %; MPV 9.2 fl. (7.2-11.1); NUCLEATED RBCS 0 /100WBC; PLATELET COUNT* 270 thou/uL (150-400); POLYS 82.3 %; RBC 4.33 mil/uL (4.20-5.00); RDW-CV 13.9 % (10.5-14.5); WBC 15.5 thou/uL (4.0-11.0)
[2019-08-04 04:41] LABS: CALCIUM 8.1 mg/dL (8.5-10.1); CREATININE 1.1 mg/dL (0.6-1.3); POTASSIUM 4.5 mmol/L (3.5-5.1)
[2019-08-04 05:07] LABS: GLYCOHEMOGLOBIN (HGB A1C) 10.4 % (4.8-5.6)
--- NOTE | 2019-08-04 05:09 | NUR ---
PATIENT HAS SLEPT WELL THROUGHOUT THE NIGHT. VSS ON 2L 02 VIA NASAL CANNULA. PAIN WELL CONTROLLED. MEDICATIONS GIVEN ORDERED AND CHARTED. DRESSING TO RIGHT LEG IS C/D/I. PATIENT REFUSING TO TURN D/T NOT WANTING TO HURT HER LEG. PURE WIK IN PLACE. IV IN LEFT AC-NS @ 100ML/HR. FALL PRECAUTIONS IN PLACE AND HOURLY ROUNDS MADE. WILL CONTINUE WITH PLAN OF CARE AND NURSING TO MONITOR.
[2019-08-04 08:26] VITALS: BP 152/75
--- NOTE | 2019-08-04 14:44 | NUR ---
cm initial assessment to discuss d/c plan. pt has cpap machine in her room. pt states in addition to cpap she has O2, shower bench, w/c and walker. pt denies hx w/HH or SNF. pt states her son, grandson and sister are her support system. son and grandson lives a few blocks away and help w/cooking and cleaning and her sister drives her to dr singh and errands. pt is independent w/adls.
--- NOTE | 2019-08-04 16:26 | NUR ---
PT A&Ox4. VITALS STABLE. EATING A MINIMAL AMOUNT OF MEALS. ZOFRAN GIVEN FOR NAUSEA. PT REFUSED SOME ORAL MEDICATIONS. BEDREST. PURE WICK IN PLACE, CHANGED AT 1400. PAIN CONTROLLED WITH OXY IR. SON IS DESIGNATED VISITOR FOR PT. DRESSING C/D/I. RIGHT LEG ELEVATED. FALL PRECAUTIONS IN PLACE. CALL LIGHT WITHIN REACH. WILL CONTINUE TO MONITOR.
--- NOTE | 2019-08-04 17:59 | NUR ---
PT HAS OWN GLUCOSE METER, MANUALLY PUT IN BS VALUES.
[2019-08-04 20:00] VITALS: BP 151/52
[2019-08-05 04:26] LABS: ABSOLUTE BASOPHILS 0.1 thou/uL (0.0-0.2); ABSOLUTE EOSINOPHILS 0.1 thou/uL (0.0-0.7); ABSOLUTE LYMPHOCYTES 2.2 thou/uL (0.8-5.3); ABSOLUTE MONOCYTES 1.1 thou/uL (0.0-1.2); ABSOLUTE NEUTROPHILS 11.1 thou/uL (1.6-8.1); BASOPHILS 0.4 %; EOSINOPHILS 0.6 %; HEMATOCRIT 34.8 % (37.0-47.0); HEMOGLOBIN 11.6 gm/dL (12.0-15.0); LYMPHOCYTES 15.3 %; MCH 28.6 pg (26.0-34.0); MCHC 33.4 g/dL (28.0-37.0); MCV 85.6 fL (80.0-100.0); MONOCYTES 7.5 %; NUCLEATED RBCS 0 /100WBC; PLATELET COUNT* 280 thou/uL (150-400); POLYS 76.2 %; RBC 4.07 mil/uL (4.20-5.00); WBC 14.5 thou/uL (4.0-11.0)
--- NOTE | 2019-08-05 04:35 | NUR ---
PT A&O X 4. ON 2L BY VA. MEDS GIVEN ORDERED. PT TAKES PILLS ONE AT A TIME. PAIN CONTROLLED WITH OXY IR. NO C/O NAUSEA THIS SHIFT. RT LEG ELEVATED ON PILLOW. DRESSING INTACT. PUREWICK IN PLACE. CALL LIGHT WITHIN REACH. NPO SINCE MIDNIGHT FOR SURGERY. WILL COTINUE TO MONITOR.
[2019-08-05 04:59] LABS: CALCIUM 8.2 mg/dL (8.5-10.1); CREATININE 1.3 mg/dL (0.6-1.3); POTASSIUM 4.1 mmol/L (3.5-5.1)
[2019-08-05 07:50] VITALS: BP 127/60
[2019-08-05 08:39] VITALS: BP 151/52
[2019-08-05 16:00] VITALS: BP 160/44
--- NOTE | 2019-08-05 17:09 | NUR ---
ASSUMED CARE OF PATIENT AT APPROX 0730. ALERT AND ORIENTED X4. ASSESSMENT COMPLETED AND CHARTED. VSS ON 2 LITERS 02. PATIENT TO PACU AT APPROX 0800 AND RETURNED TO THE FLOOR AT 1430. PATIENT ALERT AND ORIENTED BUT VERY SLEEPY. 02 AT 4 LITERS WITH CONT PULSE OX IN PLACE. FLUIDS INFUSED ORDERED. ORAL MEDICATIONS STARTED. NO OTHER COMPLANTS THIS SHIFT. FALL PRECAUTIONS IN PLACE. CALL LIGHT WITHIN REACH. HOURLY ROUNDS COMPLETED. WILL CONTINUE WITH PLAN OF CARE.
[2019-08-05 19:57] VITALS: BP 113/80
[2019-08-05 20:00] VITALS: BP 113/80
[2019-08-06] VITALS (7 sets, daily range): BP systolic 107–154; BP diastolic 49–63
--- NOTE | 2019-08-06 04:54 | NUR ---
PT A&O, CONFUSED AT TIMES. VSS ON 4L BY NC. ON CONTINUOUS PULSE OX. PAIN MANAGED WITH OXY IR. NO N/V. PT HAD VOID ISSUE. MORE THAN 999ML ON BLADDER SCAN. DR NOTIFIED AND ORDER RECEIVED. PT REFUSED URINARY CATH. EDUCATION GIVEN THEN PT AGREED. BARBOSA IN PLACE. CALL LIGHT WITHIN REACH. WILL CONTINUE TO MONITOR.
[2019-08-06 05:20] LABS: ABSOLUTE LYMPHOCYTES 1.8 thou/uL (0.8-5.3); ABSOLUTE MONOCYTES 1.5 thou/uL (0.0-1.2); ABSOLUTE NEUTROPHILS 12.1 thou/uL (1.6-8.1); BASOPHILS 0.1 %; EOSINOPHILS 0.2 %; HEMATOCRIT 30.1 % (37.0-47.0); HEMOGLOBIN 10.3 gm/dL (12.0-15.0); LYMPHOCYTES 11.5 %; MCH 28.9 pg (26.0-34.0); MCHC 34.3 g/dL (28.0-37.0); MCV 84.2 fL (80.0-100.0); MPV 8.6 fl. (7.2-11.1); NUCLEATED RBCS 0 /100WBC; PLATELET COUNT* 287 thou/uL (150-400); POLYS 78.2 %; RBC 3.57 mil/uL (4.20-5.00); RDW-CV 13.8 % (10.5-14.5); WBC 15.5 thou/uL (4.0-11.0)
[2019-08-06 05:32] LABS: CALCIUM 7.7 mg/dL (8.5-10.1); POTASSIUM 3.6 mmol/L (3.5-5.1)
--- NOTE | 2019-08-06 16:50 | NUR ---
ASSUMED CARE OF PATIENT AT APPROX 0730. PATIENT VERY SLEEPY BUT ALERT WHEN SPOKEN TO. PATIENT VERY CONFUSED AND HAVING HALLUCINATIONS. BLOOD SUGARS HAVE BEEN VERY LOW AT 48 THIS MORNING, DEXTROSE GIVEN IV AND SUGAR CAME UP TO 178 THEN DROPPED DOWN INTO LOW 100'S TO 89. PATIENT NOT INTERESTED IN EATING OR DRINKING ANYTHING, FAMILY EVEN BROUGHT IN FOOD BUT PATIENT DID NOT WANT TO EAT. ALL INSULINS HELD, EMAR NOT UPDATED AT THIS TIME, THERE IS NO OTHER NURSE TO WITNESS DOCUMENTATION. NO PAIN MEDS GIVEN AFTER AM DOSE, PATIENT NOT COMPLAINING OF PAIN AND IS VERY LETHERGIC. PROVENA IN PLACE ON RIGHT THIGH/UPPER CALF AREA. DRESSING IS SEALED AND NO DRAINAGE NOTED. BARBOSA REMAINS IN PLACE AND DRAINING DEPENDENTLY. FAMILY X2 AT BEDSIDE, CLEARED WITH NURSING AND LIME SLUDGE KILN OPERATOR TO HAVE MORE THAN 1 PERSON AT BEDSIDE. PATIENT TRANSFERRED TO TELEMETRY BED 215 AT 1750 WITH ALL PERSONAL BELONGINGS. REPORT GIVEN TO NATHAN MILLER.
--- NOTE | 2019-08-06 17:30 | NUR ---
TRANSFER FROM JOINT/SPINE UNIT TO ROOM 215. ASSESSMENT COMPLETE, DEFER TO COMPUTER CHARTING. JOB ANALYSIS MANAGER PLACED TRACKING SR WITH PERIODS OF VPACED RHYTHM. SURGICAL DRESSING CDI - WOUND VAC IN PLACE TO RIGHT LEG. ALERT ORIENTED TO SELF ONLY, ANXIOUS - EYES GAZING OFF AT TIMES HAVING DIFFICULTY FOCUSING. 02 ON 4L PER NC, LUNGS CTA/DIMINISHED. DAUGHTER AT BEDSIDE. WILL CONTINUE TO MONITOR.
[2019-08-07] VITALS (7 sets, daily range): BP systolic 110–142; BP diastolic 40–68
[2019-08-07 07:08] LABS: ABSOLUTE BASOPHILS 0.1 thou/uL (0.0-0.2); ABSOLUTE EOSINOPHILS 0.2 thou/uL (0.0-0.7); ABSOLUTE LYMPHOCYTES 1.5 thou/uL (0.8-5.3); ABSOLUTE MONOCYTES 1.2 thou/uL (0.0-1.2); ABSOLUTE NEUTROPHILS 7.8 thou/uL (1.6-8.1); BASOPHILS 0.5 %; EOSINOPHILS 1.8 %; HEMATOCRIT 27.5 % (37.0-47.0); HEMOGLOBIN 9.4 gm/dL (12.0-15.0); LYMPHOCYTES 13.6 %; MCH 29.2 pg (26.0-34.0); MCHC 34.2 g/dL (28.0-37.0); MCV 85.5 fL (80.0-100.0); MONOCYTES 11.5 %; MPV 8.9 fl. (7.2-11.1); NUCLEATED RBCS 0 /100WBC; PLATELET COUNT* 256 thou/uL (150-400); POLYS 72.6 %; RBC 3.22 mil/uL (4.20-5.00); RDW-CV 13.9 % (10.5-14.5); WBC 10.7 thou/uL (4.0-11.0)
--- NOTE | 2019-08-07 07:09 | NUR ---
ASSUMED CARE OF PT AFTER REPORT AT 1930. PT A&OX1. CONFUSED AND WITH PERIODS OF VISUAL HALLUCINATIONS AT THE START OF THE SHIFT. SHE CLAIMED SEEING HER SONS & DAUGHTER ON THE [place] AND SEEING SOMETHING ON THE CEILING. VSS. PHYSICAL ASSESSMENT COMPLETED AND CHARTED. PT ON O2 AT 4L NC. PT TRACING SR/ST/AVPACED/AFIB/PVC ON TELE. PT COMPLAINED OF RIGHT HIP PAIN-MED GIVEN PER APR. PT WITH BARBOSA TO DEPENDENT DRAIN. PT BECAME A&OX4 AT AROUND 4AM. REMEMBERED THAT SHES HAVING SOME HALLUCINATIONS. PT ABLE TO SLEEP WELL ON BED. FALL PRECAUTIONS IN PLACE. CALL LIGHT WITHIN REACH.
--- NOTE | 2019-08-07 07:10 | NUR ---
CHANGE OF SHIFT BEDSIDE REPORT GIVEN PATIENT SEEN AT BEDSIDE, IN BED ASLEEP ASSUMED PATIENT CARE
[2019-08-07 07:18] LABS: CALCIUM 7.3 mg/dL (8.5-10.1); CREATININE 0.8 mg/dL (0.6-1.3); POTASSIUM 3.4 mmol/L (3.5-5.1)
--- NOTE | 2019-08-07 13:06 | NUR ---
CM spoke with Pt and son in room, informed of acute rehab consult. Pt in agreement that she will need rehab post hospital stay. Family is available to stay with Pt post rehab stay if needed per son.
--- NOTE | 2019-08-07 15:33 | EKG ---
[place] [address] ELECTROCARDIOGRAM REPORT Name: MOUSTAPHA HOLM Room: [address] ADM IN M.R.#: [id number] Admission: 08/02/19 Attend Phys: Elo Romo, Discharge: Date of : 43 Date of Service: 08/05/19 0826 Report #: [id number] THIS REPORT FOR: //name// [facility] Test Date: 2019-08-05 Test Time: 08:26:30 Pat Name: MOUSTAPHA HOLM Department: Room: [address] Gender: F Safety Advisor: Christa HERNANDEZ : 1945 Requested By: Yung Maria Order Number: [id number] Racquel MD: Guanaco Meraz Measurements Intervals [place] Rate: 71 P: 246 HI: 196 QRS: -6 QRSD: 152 T: 188 QT: 409 QTc: 445 Interpretive Statements Ventricular-paced complexes alternates with atrial fibrillation No further rhythm analysis attempted due to paced rhythm Compared to ECG 01/23/2018 11:37:33 Sinus rhythm no longer present Electronically Signed On 08-07-2019 15:33:06 CDT by Guanaco Meraz [email or web address] <ELECTRONICALLY SIGNED> By: Guanaco Meraz MD, FAC 08/07/19 1533 5 5 Guanaco Meraz MD, FAC /EPI
[2019-08-07 23:45] LABS: URINE BILIRUBIN NEGATIVE (Negative); URINE BLOOD TRACE (Negative); URINE CLARITY CLEAR; URINE COLOR YELLOW; URINE GLUCOSE-RANDOM NEGATIVE (Negative); URINE KETONES NEGATIVE (Negative); URINE LEUKOCYTES-REFLEX NEGATIVE (Negative); URINE NITRITE-REFLEX NEGATIVE (Negative); URINE PROTEIN NEGATIVE (Negative)
[2019-08-08 00:42] VITALS: BP 129/53
--- NOTE | 2019-08-08 05:05 | NUR ---
ASSUMED CARE OF PT AFTER REPORT AT 1930. PT A&OX4. VSS. PHYSICAL ASSESSMENT COMPLETED AND CHARTED. PT ON O2 AT 3L NC. PT TRACING AFIB/BBB/AV PACED ON TELE. PT TURNED TO SIDES. PT DENIES PAIN EXCEPT WHEN TURNING. PT WITH BARBOSA TO DEPENDENT DRAIN. UA SENT TO LAB. FAL PRECAUTIONS IN PLACE. PT ABLE TO SLEEP WELL ON BED. CALL LIGHT WITHIN REACH.
[2019-08-08 05:22] VITALS: BP 160/67
[2019-08-08 07:25] LABS: ABSOLUTE BASOPHILS 0.1 thou/uL (0.0-0.2); ABSOLUTE EOSINOPHILS 0.4 thou/uL (0.0-0.7); ABSOLUTE LYMPHOCYTES 1.8 thou/uL (0.8-5.3); ABSOLUTE MONOCYTES 1.3 thou/uL (0.0-1.2); ABSOLUTE NEUTROPHILS 8.8 thou/uL (1.6-8.1); BASOPHILS 0.6 %; EOSINOPHILS 3.2 %; HEMATOCRIT 27.1 % (37.0-47.0); HEMOGLOBIN 9.1 gm/dL (12.0-15.0); LYMPHOCYTES 14.3 %; MCH 28.7 pg (26.0-34.0); MCHC 33.6 g/dL (28.0-37.0); MCV 85.4 fL (80.0-100.0); MONOCYTES 10.5 %; NUCLEATED RBCS 0 /100WBC; PLATELET COUNT* 297 thou/uL (150-400); POLYS 71.4 %; RBC 3.17 mil/uL (4.20-5.00); RDW-CV 13.8 % (10.5-14.5); WBC 12.3 thou/uL (4.0-11.0)
[2019-08-08 07:31] LABS: CALCIUM 7.4 mg/dL (8.5-10.1); CREATININE 1.3 mg/dL (0.6-1.3); POTASSIUM 3.6 mmol/L (3.5-5.1)
[2019-08-08 08:00] VITALS: BP 137/60
[2019-08-08] MEDS ORDERED: HUMALOG100 UNIT/1 SUBQ (09:44)
[2019-08-08] MEDS ORDERED: HYDROCODON-ACE1 EAC7 PO (09:44)
[2019-08-08] MEDS ORDERED: VITAMIN B-121000 MCG PO (09:46)
[2019-08-08 12:21] VITALS: BP 126/40
--- NOTE | 2019-08-08 15:14 | NUR ---
MAX spoke with Corine, inpt rehabilitation assistant, about status of pt being accepted to rehab and Corine explained that Dr Maharaj wants to see how pt does with PT today since pt was not doing as well with therapy yesterday but if pt does well with PT today, she would be able to be accepted to rehab either this evening (because of staffing) or tomorrow and if pt does not do well in PT today, then pt would be denied rehab and would have to consider SNF placement.
[2019-08-08 16:46] VITALS: BP 102/45
[2019-08-08 20:00] VITALS: BP 102/45
--- NOTE | 2019-08-09 12:39 | CON ---
[address] [address] CONSULTATION Name: MOUSTAPHA HOLM Room: [address] IN M.R.#: [id number] Admission: 08/02/19 Attend Phys: Elo Romo MD Discharge: 08/08/19 Date of : 43 Report #: [id number] THIS REPORT FOR: //name// cc: Beatriz Rutherford Kathleen M. DO ~ THIS REPORT FOR: //name// CC: Beatriz Romo DATE OF SERVICE: 08/06/2019 HISTORY OF PRESENT ILLNESS: This 74-year-old female patient who was evaluated by me for the possibility for her altered mental status. I talked to the patient's son and I reviewed the patient's records. I talked to the patient's nurse on telemetry in detail. This patient had a surgery on her right femur. It was done yesterday. She has been confused. I cannot get a good history from anybody whether the patient was completely normal after the surgery and then became confused or whether she has been confused since then. Nurses on telemetry floor has not seen this patient and their impression is that she has been confused since the surgery and I reviewed the nurse's note from surgery floor. I am not completely certain about that and I am trying to find out. It looks like this patient notes indicate that at one time, she was alert and oriented, but very sleepy and that note is from 08/04 at 5:00. Subsequently, the notes also indicate that her blood sugar dropped to as low as 48 and her oxygen saturation also dropped. She is also on pain medications and for some reason, she is also on primidone. REVIEW OF SYSTEMS: Positive for femur problem, hallucination today. She has received pain medication. She does have a history of diabetes and hypertension. This patient does have a history of atrial fibrillation and she is on chronic anticoagulation. Reviewing the records will indicate that she was on DVT prophylaxis of Lovenox, but she has been restarted on anticoagulation now that was the patient's relevant 14-point review of system, which I can get from the chart. This patient has numerous medical problems as I can tell from the record and those problems include possible sleep apnea, diabetes, which is poorly controlled, fracture of the femur, prior history of atrial fibrillation and anticoagulation was held because of surgery. 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 This was some relevant history and she does appear to have multiple comorbidities. PAST MEDICAL HISTORY: Positive for diabetes and hypertension. Her CT scan shows some problem with hemorrhage in the eye. I am not sure how old and how now that is. SOCIAL HISTORY: The patient had a [place] [address] CONSULTATION Name: MOUSTAPHA HOLM Room: [address] IN ..#: [id number] Admission: 08/02/19 Attend Phys: Elo Romo MD Discharge: 08/08/19 Date of : 43 Report #: [id number] PHYSICAL EXAMINATION: NEUROLOGIC: Her examination was very limited. She opens her eyes. She was very sleepy. I had tough time waking her up. When I woke up, she stayed awake only for a fraction of second and then went back to sleep. I tried to do the cranial nerve examination and neuromuscular examination that was not possible as far as I can tell. I reviewed the medication list. She is on primidone as well as she got hydrocodone. IMPRESSION: Pretty difficult to form in this patient. It looks like she became progressively more and more drowsy. That may at least partly be because of her hypoglycemia, hypoxia if her oxygen did go low and the medications. She is on pain medication and she is also on primidone. I am going to hold her primidone for the time being. She also has a pacemaker. She looks like has a history of atrial fibrillation, which has converted to sinus rhythm. She was off anticoagulation except for deep venous thrombosis prophylaxis dose. They can have stroke because of that, that will be very difficult to exclude. I am not sure whether the pacemaker is compatible with MRI or not. I think we can do a CT angio, especially the carotid has shown stenosis. Her GFR is good now, but it was 40 yesterday. It has been low even before. The question is whether it is going to change any treatment or not, it is unlikely it will change any treatment. She is on anticoagulation and she is not a TPA candidate. The onset of the symptom is not clear and how much symptom we can attributes to stroke even if we find one. Because of her multiple other problems, she has faced like possible hypoxia, hypoglycemia is not clear. I asked the nurses to talk to the orthopedic to see if she is even worth taking down because she is on 4 liters of oxygen now and I am trying to get some more history in this patient. Presently, I think we should stop as much psychotropic medication as possible. I will stop her primidone. Her blood sugar has gone in 40s and we will try to maintain the blood sugar as well as oxygen. I do not know whether MRI can be done with the pacemaker or not and that would have been a better test. We can try to do the CT angio. Her BUN and creatinine are just good today and I am not sure how much good it is going to do even if we find something in this patient because she is on anticoagulation and time of onset is not clear. From all indication, it looks like it was sometime last night or yesterday. She was at least confused and lethargic that time. We cannot even tell how much problem is because of hypoxia and hypoglycemia and how much is because of stroke even if we can find one, but she will need a CT angio some time because of the carotid Doppler finding, which is always not correct, but when to do that, I will try to find out more about that. There is going to be some risk with it because GFR was low yesterday, although it is okay today, but I will try to find out more before going that route that is because [place] [address] CONSULTATION Name: MOUSTAPHA HOLM Room: [address] IN [facility]#: [id number] Admission: 08/02/19 Attend Phys: Elo Romo MD Discharge: 08/08/19 Date of : 43 Report #: [id number] Kaminski is a neurologist documentation nurse from tomorrow morning and I will check out with him and he will follow up this patient with you. Thank you very much for this referral. <ELECTRONICALLY SIGNED> By: Chirag Carrasquillo MD 08/09/19 1239 [id number] Carrasquillo MD /nt
--- NOTE | 2019-08-09 12:39 | EEG ---
[address] [address] EEG STUDY REPORT Name: JORIMOUSTAPHA OCASIO Room: [address] IN .R.#: [id number] Admission: 08/02/19 Attend Phys: Elo Romo MD Discharge: 08/08/19 Date of : 43 Report #: [id number] THIS REPORT FOR: //name// CC: Beatriz Romo DATE OF SERVICE: 08/07/2019 The patient is being evaluated for altered mental status. EEG was done by placing the electrode by standard 10-20 system of electrode placement. Both referential and sequential montages were used for recording. Background activity in this patient's EEG is about 7-8 Hz and 30 microvolt. It is intermixed with theta range slowing on both sides. Photic stimulation was unremarkable. The patient went to sleep and that is associated with bilateral slowing and vertex sharp waves. Throughout the record, no active epileptiform activity was noticed. IMPRESSION: This patient's EEG is intermixed with theta range slowing on both sides. That is a nonspecific abnormality, which can occur with encephalopathy, effect of psychotropic medication, dementia, etc. Clinical correlation is recommended. <ELECTRONICALLY SIGNED> By: Chirag Carrasquillo MD 08/09/19 1239 [id number] Carrasquillo MD /nt
== END 2019-08-08 20:12 | DRG 480 ==
LOC: M.ERS 21:50 → M.TBA-ER 23:53 → M.ORTHSURG 08-03 01:40 → M.2W 08-06 16:56
PROVIDERS: Emergency Medicine; Internal Medicine; ADMIT Internal Medicine; ATTEND Internal Medicine
PROC: 2W3NX1Z Immobilization of Right Upper Leg using Splint (ICD-10-PCS; 2019-08-02)
PROC: 0QSB04Z Reposition Right Lower Femur with Internal Fixation Device, Open Approach (ICD-10-PCS; principal; 2019-08-05)
DX: S72.491A Other fracture of lower end of right femur, initial encounter for closed fracture (principal); J96.21 Acute and chronic respiratory failure with hypoxia; G93.41 Metabolic encephalopathy; I50.32 Chronic diastolic (congestive) heart failure; Z68.43 Body mass index [BMI] 50.0-59.9, adult; S72.421A Displaced fracture of lateral condyle of right femur, initial encounter for closed fracture; S72.431A Displaced fracture of medial condyle of right femur, initial encounter for closed fracture; E78.5 Hyperlipidemia, unspecified; J44.9 Chronic obstructive pulmonary disease, unspecified; F32.9 Major depressive disorder, single episode, unspecified; G47.33 Obstructive sleep apnea (adult) (pediatric); E66.01 Morbid (severe) obesity due to excess calories; I08.0 Rheumatic disorders of both mitral and aortic valves; E53.8 Deficiency of other specified B group vitamins; E03.9 Hypothyroidism, unspecified; E11.40 Type 2 diabetes mellitus with diabetic neuropathy, unspecified; E11.65 Type 2 diabetes mellitus with hyperglycemia; I11.0 Hypertensive heart disease with heart failure; Z79.899 Other long term (current) drug therapy; Z79.4 Long term (current) use of insulin; Z79.84 Long term (current) use of oral hypoglycemic drugs; Z88.5 Allergy status to narcotic agent; Z88.2 Allergy status to sulfonamides; Z88.6 Allergy status to analgesic agent; Z88.1 Allergy status to other antibiotic agents; Z91.012 Allergy to eggs; Z91.040 Latex allergy status; Z95.0 Presence of cardiac pacemaker; Z79.01 Long term (current) use of anticoagulants; Y93.89 Activity, other specified; Y92.89 Other specified places as the place of occurrence of the external cause; Y99.8 Other external cause status; E11.649 Type 2 diabetes mellitus with hypoglycemia without coma; I48.91 Unspecified atrial fibrillation; W01.0XXA Fall on same level from slipping, tripping and stumbling without subsequent striking against object, initial encounter

== ENCOUNTER 2019-08-08 20:43 | Inpatient (IN) | payer MEDICARE, OTHER ==
[~2019-08-08] VITALS: Ht 157.5 cm; Wt 113.4 kg
[2019-08-08 20:00] VITALS: BP 110/56
[~2019-08-08 20:43] MED LIST changes: +HUMALOG100 UNIT/1 SUBQ; +HYDROCODON-ACE1 EAC7 PO; +VITAMIN B-121000 MCG PO
--- NOTE | 2019-08-08 23:45 | NUR ---
PT ARRIVED TO UNIT AT 2100. ADMISSION DATABASES COMPLETED AND ADMISSION PAPERWORK SIGNED. PT ALERT AND ORIENTED X4, POLITE AND COOPERATIVE WITH CARES. PT HAS DRESSING TO RIGHT LEG EXTENDING TO HIP WHICH IS C/D/I. WOUND VAC IN PLACE. PT IS GROSSLY OBESE AND HAS DIFFICULTY TURNING. BARBOSA LEFT IN PLACE DUE TO IMMOBILITY ISSUES. BARBOSA TO DD, DRAINING DARK YELLOW URINE. NO SKIN ISSUES. PT IS BLIND IN LEFT EYE. PT TO HAVE SOMEONE BRING IN HER HOME CPAP MACHINE TOMORROW. ON 3L 02 PER NC. REHAB ROUTINE EXPLAINED. CALL LIGHT IN REACH, WILL CONTINUE TO MONITOR.
--- NOTE | 2019-08-09 05:28 | NUR ---
PT SLEPT WELL OVERNIGHT. NO C/O PAIN OR DISTRESS. Q2 TURNS ALLOWED. PT ON 3L 02 PER NC. CALL LIGHT IN REACH, BED ALARM ON FOR SAFETY. HOURLY ROUNDING IN PROGRESS, WILL CONTINUE TO MONITOR.
[2019-08-09 05:38] LABS: HEMATOCRIT 28.8 % (37.0-47.0); HEMOGLOBIN 9.8 gm/dL (12.0-15.0); MCH 29.2 pg (26.0-34.0); MCHC 34.1 g/dL (28.0-37.0); MCV 85.8 fL (80.0-100.0); MPV 8.4 fl. (7.2-11.1); RBC 3.35 mil/uL (4.20-5.00); RDW-CV 13.7 % (10.5-14.5); WBC 11.5 thou/uL (4.0-11.0)
[2019-08-09 05:51] LABS: CALCIUM 8.1 mg/dL (8.5-10.1); CREATININE 1.7 mg/dL (0.6-1.3); POTASSIUM 3.8 mmol/L (3.5-5.1)
[2019-08-09 08:52] VITALS: BP 121/54
--- NOTE | 2019-08-09 09:15 | NUR ---
WOUND NURSE: RECEIVED CONSULT ON THIS PATIENT DUE TO PRESENCE OF PREVEENA WHICH IS NOT FUNCTIONING. PATIENT EXPLAINS IT'S BEEN ON FOR A WEEK. STAFF NURSE ALMA DELIA TO CALL ORTHO AND ADDRESS SITUATION TO SEE IF THEY WANT IT REMOVED AND AND ALTERNATE DRESSING USED.
--- NOTE | 2019-08-09 14:16 | NUR ---
Inpt rehab assessment and SW and Dr Maharaj met with pt and pt son to review team conference summary and plan for reteam. Pt lives at home with good family support, wc ramp. SW to continue to follow to assist with safe dc planning.
--- NOTE | 2019-08-09 17:32 | NUR ---
ASSESSMENT COMPLETED DOCUMENTED THIS MORNING. NO SUCTION OR DRAINAGE NOTED WITH EXISTING PREVENA INPLACE. [id number] CALLED AND SPOKE WITH DEBBI AT ORTHO OFFICE AND HAD DR. GUTIÉRREZ PAGED, DR. GUTIÉRREZ RETURNED CALL AND ORDERS REC'D TO REMOVE EXISTING PREVENA AND COVER INCISION WITH MEPILEX, MONITORING FOR DRAINAGE. 1230 PREVENA REMOVED AND LARGE POCKED OF SEROUS DRAINAGE (APPROX 300-400CC CLEAR SOILA/YELLOW DRAINAGE) FLOWED FROM SUPERIOR END OF INCISION. SMALL AREAS OF BRIGHT RED DRAINAGE NOTED THROUGOUT THE INCISION. AREA CLEANSED AND COVERED WITH MEPILEX. DR. GUTIÉRREZ PAGED AGAIN. 1400 DR. GUTIÉRREZ HERE AND APPLIED NEW PREVENA, TAKING PICTURES OF INCISION AND SENDING TO . SUCTION OBTAINED AFTER PLACING PREVENA AND PATIENT TOLERATED WELL. BARBOSA CATHETER HAS BEEN PATENT AND DRAINING CLEAR DARK YELLOW URINE. HYDROCODONE 5/325 1 TAB PO GIVEN AT 1230 FOR C/O PAIN AFTER TRANSFERRING TO BED WITH RELIEF NOTED. 2+ EDEMA NOTED TO RLE. PATIENT IS ALERT AND PLEASANT.
--- NOTE | 2019-08-09 17:56 | NUR ---
DR. NICHOLSON IN AND ROUNDING TODAY, NEW ORDER REC'D FOR LANTUS 15 U AT HS.
[2019-08-09 19:00] VITALS: BP 108/42; BP 122/44
--- NOTE | 2019-08-10 04:25 | NUR ---
ASSUMED PT CARE AT 1930. PT ALERT AND ORIENTED X4, POLITE AND COOPERATIVE WITH CARES. PT SITTING UP IN BED AT SHIFT CHANGE. DENIES PAIN. DRESSING TO PT RIGHT LEG C/D/I. PROVENA WOUND VAC IN PLACE. PT WORE HOME CPAP OVERNIGHT. PER RT PT 02 INCREASED TO 4L. BARBOSA TO DD DRAINING DARK YELLOW URINE. NO STOOL THIS SHIFT. PT SLEPT WELL OVERNIGHT. CALL LIGHT IN REACH. BED ALARM ON FOR SAFETY. HOURLY ROUNDING IN PROGRESS, WILL CONTINUE TO MONITOR.
[2019-08-10 08:00] VITALS: BP 154/57
--- NOTE | 2019-08-10 18:09 | NUR ---
ASSESSMENT COMPLETED DOCUMENTED THIS MORNING, PATIENT HAS BEEN UP AND PARTICIPATING WITH THERAPY, USE OF JANAE LIFT TO GET FROM BED TO CHAIR. BARBOSA CATHETER HAS REMAINED PATENT WITH CLEAR DARK YELLOW URINE. HYDROCODONE 5/325MG GIVEN X2 TODAY WITH RELIEF NOTED. PATIENT TAKES ALL DAY TO TAKE HER DAILY MEDS ONE AT A TIME..."IT'S THE WAY I DO AT HOME, I CAN'T TAKE THEM FAST OR MORE THAN ONE AT A TIME OR I VOMIT." PATIENT C/O NAUSEA AT 1750 WITH SMALL AMOUNT OF EMESIS. COOL CLOTH GIVEN AND REPOSITIONED, PATIENT THEN ATE HER SUPPER THAT WAS SERVED. BGL 255/293/253....8UNITS PER SS PRIOR TO MEALS TODAY. PREVENA HAS REMAINED INTACT WITH SUCTION NOTED.
[2019-08-10 19:45] VITALS: BP 133/58
--- NOTE | 2019-08-11 04:55 | NUR ---
ASSUMED CARE AT 1920. ALERT AND ORIENTED. LOW GRADE FEVERS NOTED. O2 2L NC. CPAP WITH 2L O2 BLEED. NWB RLE. HAD SOME NAUSEA BUT NO VOMITING. ZOFRAN GIVEN. PT DENIED ANY NEED FOR PAIN MEDS. PT HAS OWN SELF GLUCOSE MONITOR SENSOR TO LEFT UPPER ARM. BLOOD SUGAR AT HS WAS 250. DISCUSSED WITH PT ABOUT TAKING PILLS. PT AGREEABLE TO TRY MING PUDDING. TOOK ALL MEDS AND CHASED WITH PUDDING WITHOUT ISSUES. BARBOSA CATHETER DD DARK YELLOW URINE. PREVENA PLUS VAC TO RIGHT LEG INTACT AND SUCTIONING. NO DRAINAGE NOTED IN CANNISTER. HAS RED RASH UNDER BREASTS, GROIN AND PANNUS. NYSTATIN POWDER AND INTERDRY APPLIED. TURNED PT ONTO SIDES BUT PT HAS INCREASED PAIN WITH MOVEMENT. SLEPT WELL. CALL LIGHT IN REACH AND BED ALARM ON.
[2019-08-11 08:16] VITALS: BP 141/54
--- NOTE | 2019-08-11 16:35 | NUR ---
WOUND NURSE: PATIENT SEEN TODAY TO FOLLOW UP ON PREVENA PLUS VAC WHICH IS NOT WORKING. STAFF NURSE ADOLFO CALLED AND SPOKE WIHT DR. SOLEDAD HEALY AND RECEIVED ORDER TO REPLACE PREVENA PUMP. VAC ULTA SET TO PREVENA SETTING WAS REAPPLIED. PREVENA VAC DRESSING IS NOW INTACT AND FUNCTIONING. CALLED ORTHO OFFICE TWICE TO VERIFY THAT DRESSING IS TO BE CONTINUED OVER COCERN THAT PATIENT REPORTING TX WAS STARTED 9 DAYS AGO POST OP. 2 CALLS WENT UNRETURNED.
--- NOTE | 2019-08-11 16:48 | NUR ---
WOUND NURSE: DR. Christa HEALY DO JUST RETURNED CALL AND APPROVED VAC ULTA SET TO PROVENA APPLIED TO PATIENT'S DRESSING.
--- NOTE | 2019-08-11 17:56 | NUR ---
ASSUMMED CARE OF PT AT 0730, PT ALERT AND ORIENTED, PT TRANSFERS PER JANAE LIFT, WOUND VAC TO RIGHT LEG NOT FUNCTIONING, CALL PLACED TO ORTHO, WOUND NURSE HERE TO CHECK WD VAC, DR Nissa HEALY RETURNED CALL AND STATED TO HAVE WOUND NURSE REPLACE WOUND VAC, WD VAC REPLACED, NWB STATUS MAINTAINED, BARBOSA PATENT AND DRAINING SOILA URINE, TAKES PILLS ONE AT A TIME SEVERAL MINUTES APART, PT REQUESTED MEDS BE LEFT AT BEDSIDE BUT INFORMED PT THAT COULD NOT BE DONE, NYSTATIN PLACED UNDER BREASTS AND PANNUS, PT REPOSITIONED EVERY 2 HOURS, PT DENIED NEED FOR PAIN MEDS THIS SHIFT, PT HAS FLAT AFFECT, PT AFEBRILE THIS SHIFT, NO BM THIS SHIFT, PARTICIPATED IN ALL THERAPIES, HOURLY ROUNDING COMPLETED, ASSESSMENT COMPLETE, WILL CONTINUE TO MONITOR.
[2019-08-11 20:00] VITALS: BP 158/53
--- NOTE | 2019-08-12 00:23 | NUR ---
ASSUMED CARE AT
--- NOTE | 2019-08-12 00:23 | NUR ---
ASSUMED CARE AT 1930. PATIENT RESTING IN BED. NEEDS MAX ASSIST WITH TURNING. TAKES PILLS WHOLE ONE AT A TIME SPACED OUT 15 MINUTES BETWEEN. O2 2L/NC. WOUND VAC INTACT AT 125 MM HG. HAS OWN GLUCOMETER, WAS 213. HS SNACK OF ORANGE JELLO GIVEN PER REQUEST. GROINS PINK, NYSTATIN APPLIED. HAD HARD BM PER BEDPAN AT 08/10. HOURLY ROUNDS CONTINUE. BED ALARM ON. CALL LITE IN REACH.
--- NOTE | 2019-08-12 05:02 | NUR ---
RESTED IN BED ALL SHIFT. APPEARS TO BE SLEEPING. NO FURTHER C/O PAIN. HOURLY ROUNDS CONTINUE. BED ALARM ON. CALL LITE IN REACH.
[2019-08-12 08:00] VITALS: BP 141/78
--- NOTE | 2019-08-12 17:38 | NUR ---
ASSESSMENT COMPLETED DOCUMENTED THIS MORNING. PATIENT ASSISTED WITH 2-3 AND JANAE LIFT TO RECLINER AT BEDSIDE. PARTICIPATED WITH PT/OT AND TOLERATED WELL. BARBOSA CATHETER IS PATENT AND DRAINING CLEAR DARK YELLOW URINE. NO PRN PAIN MEDS GIVEN THIS SHIFT. PATIENT NOTED TO BE QUITE DROWSY TODAY, AROUSES EASILY BUT HAS BEEN SLEEPING MOST OF THE DAY. BGL 146/226/197 FAIR APPETITE, TAKING FLUIDS WELL. 02 ON AT 2LPM/NC WITH SATS IN THE HIGH 90'S. PREVENA DRESSING REMAINS INTACT WITH SUCTION NOTED ON RIGHT LATERAL LE.
[2019-08-12 20:00] VITALS: BP 155/63
--- NOTE | 2019-08-13 04:28 | NUR ---
ASSUMED PT CARE AT 1930. PT RESTING IN BED AT SHIFT CHANGE. TAKES PILLS ONE AT A TIME WHOLE WITH WATER. WEARING 2L 02 PER NC. WOUND VAC INTACT AT 125 MM HG. PT HAS OWN GLUCOMETER, HS BLOOD SUGAR 152. BARBOSA CATHETER TO DD, DRAINING CLEAR DARK YELLOW URINE. INTERDRY AT SKIN FOLDS UNDER PANNUS. NYSTATIN TO GROIN. NO STOOL THIS SHIFT. TURNS ALLOWED. DENIES PAIN, NO PRN MEDICATIONS GIVEN. CPAP AT HS WITH 2L 02 BLED IN. PT SLEPT WELL OVERNIGHT. BED ALARM ON FOR SAFETY. CALL LIGHT IN REACH. HOURLY ROUNDING IN PROGRESS, WILL CONTINUE TO MONITOR.
[2019-08-13 07:53] VITALS: BP 142/59
[2019-08-13 08:00] VITALS: BP 142/59
--- NOTE | 2019-08-13 17:00 | NUR ---
ASSESSMENT COMPLETED DOCUMENTED THIS MORNING, PATIENT HAS BEEN RESTING QUIETLY IN BED DURING THE DAY, NO PAIN MEDS HAVE BEEN REQUESTED OR ADMINISTERED TODAY. BARBOSA CATH IS PATENT AND DRAINING CLEAR DARK YELLOW URINE. ROSIE FRANK SHEETER OPERATOR IN TO SEE PATIENT AND DECREASED DOSE OF SERTRALINE TO 200MG DAILY AT HS. PATIENT HAS BEEN VERY LETHARGIC AND FLAT THE PAST WEEK. SCHEDULED DOSE OF 250MG EXCEEDED RECOMMENDED MAXIMUM DOSAGE. SON IN TO VISIT AND BROUGHT PATIENT LUNCH AND SUPPER, PATIENT ATE VERY WELL. 02 CONTINUES AT 2LPM/NC. BGL 103/225/251.
[2019-08-13 19:15] VITALS: BP 113/48
--- NOTE | 2019-08-14 04:37 | NUR ---
ASSUMED PT CARE AT 1930. PT ALERT AND ORIENTED X4, POLITE AND COOPERATIVE WITH CARES. PT ALREADY IN BED AT SHIFT CHANGE. PT DENIES PAIN UPON INITIAL ASSESSMENT. BARBOSA TO DD, DRAINING DARK YELLOW URINE. PT TURNED WHEN AGREEABLE. DRESSING TO RIGHT LEG C/D/I. WOUND VAC SET AT 125 MM HG. HAS OWN GLUCOMETER, HS BLOOD SUGAR 232. PT ON 2L 02 PER NC. DID NOT WEAR CPAP. NO STOOL THIS SHIFT. USES CALL LIGHT APPROPRIATELY. CALL LIGHT IN REACH. BED ALARM ON FOR SAFETY. HOURLY ROUNDING IN PROGRESS, WILL CONTINUE TO MONITOR.
[2019-08-14 08:00] VITALS: BP 143/52
--- NOTE | 2019-08-14 12:01 | NUR ---
MAX met with pt son and pt. Pt son wanted to make sure of what recommendations of things he needed to do at home to prepare for [place] home [place]. Pt son already built ramp and plans to measure pt wc at home to make sure that pt will fit in wc that they have. Pt son is having grab bars installed and has two options for shower chair. Pt son has siblings who are willing to assist pt at home as needed as well. Pt son wondering about possible need for hospital bed and he said that he already has a place for it in the home if needed. MAX explained that those are all great things and that Wednesday SW will follow up again with pt son to go in more detail about team's recommendations.
--- NOTE | 2019-08-14 15:10 | NUR ---
WOUND NURSE: FOLLOWED UP WITH PATIENT PERTAINING TO WOUND VAC. THE WOUND VAC REMAINS IN PLACE WITH INTACT PROVENA PLUS DRESSING ON AND ATTACHED TO VAC ULTA WITH PREVENA SETTING. REMINDED STAFF NURSE ASSIGNED TO PATIENT TO FOLLOW WITH ORTHO BY WEDNESDAY TO SEE IF DRESSING IS TO BE DC'D AND AN ALNTERATE TYPE DRESSING TO BE APPLIED SINCE DRESSING WILL HAVE BEEN ON FOR 1 WEEK.
--- NOTE | 2019-08-14 16:11 | NUR ---
ASSUMMED CARE OF PT AT 0730, PT ALERT AND ORIENTED, PT TRANSFERS WITH JANAE LIFT, PT HAS DIFFICULT TIME TAKING PILLS, TOOK 1 PILL AT A TIME SEVERAL MINUTES APART BUT STILL BECAME NAUSEATED AND HAD MODERATE EMESIS WITH SEVERAL PILLS IN LIQUID, PT HAS REFUSED REST OF ORAL MEDS TODAY, ZOFRAN OFFERED FOR NAUSEA BUT PT REFUSES, TAKING FOOD AND FLUIDS WELL BUT JUST CAN NOT TOLERATE PILLS, PT SON STATES AT HOME SHE STARTS TAKING HER MEDICATION IN THE MORNING AND TRIES TO TAKE THEM ALL DAY BUT UNABLE TO GET THEM COMPLETED BEFORE BED.PT DENIES NEED FOR PAIN MEDICATION, PT HAS 02 ON AT 2 LITERS, SMEAR OF BM THIS SHIFT, BARBOSA PATENT AND DRAINING SOILA URINE, UP IN CHAIR FOR SEVERAL HOURS, TOLERATES WELL AND STATED IT FEELS GOOD TO SIT UP, SON HERE AND DISCUSSED PLAN OF CARE WITH HIM AND PT, REPOSTIONED EVERY 2 HOURS, PARTICIPATED IN ALL THERAPIES, HOURLY ROUNDING COMPLETED, ASSESSMENT COMPLETE, WILL CONTINUE TO MONITOR.
[2019-08-14 20:00] VITALS: BP 131/54
--- NOTE | 2019-08-15 04:13 | NUR ---
ASSUMED PT CARE AT 1930. PT ALERT AND ORIENTED X4, POLITE AND COOPERATIVE WITH CARES. PT TOOK PILLS WHOLE WITH WATER ONE AT A TIME WITHOUT DIFFICULTY. NO NAUSEA OR VOMITING. PT DENIES NEED FOR PAIN MEDICATION. PT ON 2L 02 PER NC. BARBOSA TO DD, DRAINING SOILA URINE. PT REPOSITIONED Q2 HOURS. DRESSING TO RIGHT LEG C/D/I, WOUND VAC SET AT 125 mmHG WITH SMALL AMOUNT OF DRAINAGE IN CHAMBER. USES CALL LIGHT APPROPRIATELY, CALL LIGHT IN REACH. BED ALARM ON FOR SAFETY. HOURLY ROUNDING IN PROGRESS, WILL CONTINUE TO MONITOR.
[2019-08-15 07:30] VITALS: BP 154/62
--- NOTE | 2019-08-15 16:34 | NUR ---
ASSUMMED CARE OF PT AT 0730, PT ALERT AND ORIENTED, TRANSFERS PER JANAE LIFT, UP IN CAHIR WITH WAFFLE CUSHION, BARBOSA CATHETER IN PLACE DRAINING SOILA URINE, PT C/O OF BONE PAIN IN HER RIGHT LEG, WOUND VAC INTACT AT 125MM, PT HAS SMALL OPEN AREA ON SACRUM, CONSULT PLACED, BARRIER OINTMENT APPLIED, PT REPOSTIONED EVERY 2 HOURS, PARTICIPATED IN ALL THERAPIES, HOURLY ROUNDING COMPLETED, ASSESSMENT COMPLETE, WILL CONTINUE TO MONITOR.
[2019-08-15 20:00] VITALS: BP 141/62
--- NOTE | 2019-08-16 04:47 | NUR ---
ASSUMED CARES AT 1920. ALERT AND ORIENTED. PLEASANT. O2 2L NC. NWB RLE. WOUND VAC TO RIGHT LEG INTACT. BARBOSA CATHETER DD DARK YELLOW URINE. HAD NOSE BLEED FOR 15 MIN. DID HAVE SMALL EMESIS X 1 AFTER TAKING PILLS. WAS ABLE TO FINISH TAKING ALL MEDS AT LATER TIME. DENIED ANY NEED FOR PAIN MED. PT PREFERRED TO TURN ONTO LEFT SIDE. CPAP WITH O2 2L OVERNIGHT. SLEPT WELL. CALL LIGHT IN REACH AND BED ALARM ON.
[2019-08-16 08:00] VITALS: BP 153/57
--- NOTE | 2019-08-16 09:11 | NUR ---
WOUND NURSE: PATIENT SEEN TO ADDRESS WOUND ON COCCYX MEASURING 1.0 X 0.5 X 0.1 CM. NO ACTIVE DRAINAGE. NO PERIWOUND REDNESS, WARMTH, OR INDURATION. CONCERNED THAT APPLICAION OF A DRESSING WOUND NOT REMAIN IN PLACE AND MAY ROLL AND CONTRIBUTE A PRESSURE POINT. PLAN TO KEEP CLEAN AND USE MOISTURE BARRIER Q SHIFT. PATIENT WAS INSTRUCTED ON IMPORTANCE OF SIDE TO SIDE REPOSITIONING. ALSO HAS A SEAT CUSHION WITH CUTOUT TO OFFLOAD COCCYX WHEN SITTING. INSTRUCTED ON NUTRIENT DENSE DIET WITH INCREASED PROTEIN. PATIENT STATES SHE UNDERSTANDS.
--- NOTE | 2019-08-16 15:29 | NUR ---
MAX and Dr Maharaj met with pt and pt son to review team conference summary and plan to reteam. Pt and pt son in agreement with plan. SW discussed team's recommendation for hospital bed, wc, and possibly even andrew lift for home. SW to continue to follow to assist with safe dc planning.
--- NOTE | 2019-08-16 16:42 | NUR ---
ASSUMMED CARE OF PT AT 0730, PT ALERT AND ORIENTED, FORGETFUL, TRANSFERS PER JANAE LIFT, WD NURSE ASSESSED OPEN AREA ON COCCYX, TO CONTINUE USE OF BARRIER CREAM, PT REPOSTIONED EVERY 2 HOURS, COCCYX CUSHION IN CHAIR, PT EDUCATED ON IMPORTANCE OF TURNING, LOW AIR LOSS MATTRESS ORDERED FOR PT, PT HAD LARGE HARD BM THIS SHIFT, BARBOSA PATENT AND DRAINING SOILA URINE, O2 ON AT 2L WITH SATS OF 97%, PT UP IN CHAIR AND SITTING ON EDGE OF BED WITH THERAPY, TAKING FOOD AND FLUIDS WELL, PARTICIPATED IN ALL THERAPIES, HOURLY RONDING COMPLETED, ASSESSMENT COMPLETE, WILL CONTINUE TO MONITOR.
[2019-08-16 20:00] VITALS: BP 129/37
--- NOTE | 2019-08-16 22:36 | NUR ---
ASSUMED CARE AT 1930. PATIENT RESTING IN BED, BUT HAD BEEN TRANSFERRED TO W/C PER JANAE LIFT IN ORDER TO HAVE NEW MATTRESS (LOW PRESSURE) APPLIED TO BED. AFTER BED COLLABORATING SUPERVISING PHYSICIAN FIXED BED, PATIENT ASSISTED BACK TO BED PER JANAE LIFT. SHE VERBALIZED UNDERSTANDING OF NEED TO TURN Q2H, BUT WANTED TO LIE ON HER BACK UNTIL HER MEDS WERE DONE TO DECREASE NAUSEA FROM THEM. PILLS GIVEN ONE AT A TIME WITH AT LEAST 15 MINUTES (ONCE 30 MIN) APART PER HER REQUEST. SHE REFUSED HER VITAMIN D AND HER ZOLOFT BECAUSE THEY WERE MULTIPLE PILLS DESPITE EDUCATION REGARDING PURPOSE OF THEM. BARBOSA DRAINING SOILA URINE. HAD MOD BM PER BEDPAN OF [place]ARD [place] LIKE STOOL. SKIN CARE DONE, MOISTURE BARRIER APPLIED. TURNED TO SIDE AFTER MEDS DONE AND BM COMPLETE. HAD ROCKY CRACKERS FOR HS SNACK. MEDICATED FOR PAIN AT HS HOURLY ROUNDS CONTINUE. BED ALARM ON. CALL LITE IN REACH.
--- NOTE | 2019-08-17 05:34 | NUR ---
SLEPT MOST OF THE NIGHT. AWAKENED FOR TURNS BUT APPEARED TO GO BACK TO SLEEP. ASSISTED WITH TURNS. NO FURTHER C/O PAIN. HOURLY ROUNDS CONTINUE. BED ALARM ON. CALL LITE IN REACH.
[2019-08-17 08:00] VITALS: BP 134/59
[2019-08-17 19:55] VITALS: BP 124/58; BP 137/43
--- NOTE | 2019-08-18 04:44 | NUR ---
ASSUMED CARES AT 1920. ALERT AND ORIENTED. PLEASANT. O2 2L NC. SON CALLED TO QUESTION WHEN THE LAST TIME PT WAS TURNED AND BARRIER CREAM APPLIED TO BOTTOM. PT'S SON FELT THAT THIS WAS NOT BEING DONE. DISCUSSED FURTHER WITH PT'S SON AND REASSURED HIM THAT PT WILL BE TURNED AND BARRIER CREAM APPLIED TO BOTTOM TONIGHT. SON SAID THAT HE WILL COME IN TO VISIT HER. BARBOSA CATHETER DD DARK YELLOW URINE. PT REFUSED TO TAKE ZOLOFT DUE TO HARD TIME SWALLOWING PILLS. NO NAUSEA/VOMITING. PT TURNED THROUGHOUT THE NIGHT. CPAP MACHINE LEAKING WATER. PT WILL HAVE SON CHECK MACHINE. CALL LIGHT IN REACH AND BED ALARM ON.
[2019-08-18 08:00] VITALS: BP 135/53
--- NOTE | 2019-08-18 09:50 | NUR ---
WOUND NURSE: PATIENT SEEN FOR FOLLOW UP ASSESSMENT PERTAINING TO COCCYX WOUND AND RLE WOUND. PROXIMAL ASPEC OF DRESSING WITH >75% STRIKETHROUGH. INFORMATICA DEVELOPER APPROVED DRESSING CHANGES WEEKLY AND NEEDED. STAFF NURSE, ALMA DELIA CHANGED THE DRESSING. COCCYX WOUND WITH EPITHELIAL TISSUE COVERING THE OPENING. WILL CONT WITH CURRENT POT UNTIL TISSUE HAS TIME TO MATURE.
--- NOTE | 2019-08-18 14:52 | NUR ---
ASSESSMENT COMPLETED DOCUMENTED THIS MORNING. PATIENT ASSISTED UP TO BR WITH ASSIST OF ONE, JOCELIN/BRIELLEW. MODERATE BLACK FORMED BM. PATIENT IS ANXIOUS TO GO HOME TODAY. ORDERS HAVE BEEN REC'D TO DC HOME, FAX SENT TO [facility]. MEDS RECONCILED, DC INSTRUCTIONS GIVEN TO PATIENT WITH UNDERSTANDING VERBALIZED AND SIGNATURE OBTAINED AT 1130. 1214 PATIENT DCD VIA W/C ACCOMPANIED BY NURSE TO ER ENTRANCE AND PHYSICAL THERAPY ASSISTED WITH CAR TRANSFER TRAINING. ALL BELONGINGS SENT WITH PATIENT...DAUGHTER JOSE ASSISTED WITH LOADING CAR.
--- NOTE | 2019-08-18 17:22 | NUR ---
ASSESSMENT COMPLETED DOCUMENTED THIS MORNING. PATIENT UP AND IN RECLINER AT THE BEDSIDE WITH ASSISTANCE OF THERAPY AND USE OF JANAE LIFT. RLE INCISION DRESSING CHANGED D/T DRAINAGE MEPILEX AG BORDER APPLIED. BARBOSA CATH IS PATENT AND DRAINING CLEAR DARK YELLOW URINE. HYDROCODONE 5/325 1 TAB AT 1717 TODAY FOR C/O RIGHT KNEE PAIN. BGL 109/198/277.
[2019-08-18 19:40] VITALS: BP 113/39
--- NOTE | 2019-08-18 20:30 | NUR ---
AWAKENED FOR REASSESSMENT AND MEDICATION PASS. BARBOSA TO DEPENDENT DRAINAGE WITH DARK YELLOW URINE AND SMALL AMOUNT OF SEDIMENT. 02 NC AT TWO LITERS. CALL LIGHT WITHIN REACH.
--- NOTE | 2019-08-19 04:59 | NUR ---
RESTED QUIETLY IN BETWEEN TURNS. HOURLY ROUNDING IN PROGRESS.
[2019-08-19 07:45] VITALS: BP 140/59
--- NOTE | 2019-08-19 16:39 | NUR ---
PT A&OX3 VSS. PTREPOSITIONED Q2H FOR SKIN INTEGRITY. PT REMAINS ON FALL PRECAUTIONS. PT NWB TO RLE, PT IS COMPLIANT. DRESSING TO SX SITE C/D/I. BARBOSA CATHETER PATENT, YELLOW URINE IN COLLECTIOPN BAG, TUBING SECURED TO LEG. PT ON 2L O2 BY NC, SAT 100%. BARRIER CREAM TO COCCYX FOR REDNESS. PT SLOW TO TAKE PILLS, REFUSES VITAMINS. PT UP TO RECLINER W/MECHANICAL LIFT. PT REPOSITIONED WHILE SEATED IN RECLINER AT SCHEDULED INTERVALS. PT HAD VISITOR MUCH OF THE DAY. NO C/O NAUSEA. PRN PO PAIN MED ADMINISTERED THIS EVENING REQUESTED. PT RESTS IN ROOM WITH CALL LIGHT IN REACH. WILL CONTINUE TO MONITOR.
[2019-08-19 19:45] VITALS: BP 127/61
--- NOTE | 2019-08-19 20:00 | NUR ---
AWAKENED FOR REASSESSMENT AND MEDICATION PASS. BARBOSA TO DEPENDENT DRAINAGE WITH CLEAR/YELLOW URINE. PATIENT NOT WANTING TO TAKE MEDICATION AND ARGUMENATIVE. EXPLAINED THAT THE ZOLOFT WAS FOR HER DEPRESSION. PATIENT BECAME VERY UPSET AND SAID SHE DIDN'T HAVE DEPRESSION. PATIENT TOOK 3 OF THE 4 ZOLOFT TABS HER ELIQUIS AND HER COLACE. CALL LIGHT WITHIN REACH.
--- NOTE | 2019-08-20 05:32 | NUR ---
RESTED QUIETLY WITH 02 NASAL CANNULA AT 2 LITERS. ASSISTED WITH TURNING SIDE TO SIDE. HOURLY ROUNDING IN PROGRESS.
[2019-08-20 07:30] VITALS: BP 136/54
--- NOTE | 2019-08-20 16:55 | NUR ---
ALERT AND ORIENTED X4. UP WITH JANAE LIFT AND 2 ASSIST. DRESSINGS REMAIN DRY AND INTACT OVER RIGHT HIP. HAS BARBOSA CATHETER PATENT WITH CLEAR YELLOW URINE. REFUSED LAXATIVE FOR CONSTIPATION. REMAINS NONWEIGHTBEARING TO RIGHT LOWER EXTREMITY. REMAINS ON O2 AT 2L/NC TO KEEP O2 SATS IN 90'S. REPOSITIONED EVERY 2 HOURS. USES CALL LIGHT WITHIN REACH. FALL PRECAUTIONES IN PLACE. BED ALARM AND CHAIR ALARM USEF.
[2019-08-20 20:00] VITALS: BP 155/56
--- NOTE | 2019-08-21 05:36 | NUR ---
ASSUMED CARES AT 1920. ALERT AND ORIENTED. PLEASANT. DENIED ANY PAIN. O2 2L NC. BARBOSA CATHETER DD YELLOW URINE. PT EXPRESSED URGE TO HAVE BM BUT COULDN'T. SUPPOSITORY GIVEN. PT HAD MOD HARD FORMED STOOL IN BEDPAN. BARRIER CREAM APPLIED TO BOTTOM. PT TURNED ONTO SIDES IN BED. SLEPT OTHERWISE. CALL LIGHT IN REACH AND BED ALARM ON.
[2019-08-21 08:02] VITALS: BP 120/42
--- NOTE | 2019-08-21 15:34 | NUR ---
ASSUMED CARE AT 0730. ALERT ORIENTED PLEASANT COOPERATIVE. HX OF RT. FEMUR FX NWBRLE. MEPILEX DRESSINGS C/D/I. O2 AT 2L/M PER N/C CONTINOUSLY. PT. PARTICIPATING IN THERAPIES TRANSFERS WITH MECHANICAL LIFT FROM BED TO RECLINER AND BACK TO BED. BARBOSA PATENT WITH SOILA URINE TO DD BAG. TURNED EVERY 2 HRS IN BED MOISTURE BARRIER APPLIED TO COCCYX AREA. SON HERE VISITING MOST OF MORNING BETWEEN THERAPIES. DID HAVE SOME EMESIS AFTER TAKING 2 MEDS EVEN WITH SPACING OUT MEDS REFUSED VITAMIN SUPPLEMENTS. REFUSED ANYTHING FOR NAUSEA.
[2019-08-21 20:00] VITALS: BP 151/68
--- NOTE | 2019-08-22 05:33 | NUR ---
ASSUMED CARES AT 1920. ALERT AND ORIENTED. PLEASANT. DENIED ANY PAIN. NEEDS EXTRA TIME TO TAKE PILLS. NO NAUSEA OR VOMITING OVERNIGHT. O2 2L NC. NWB RLE. BARBOSA CATHETER DD YELLOW URINE. RIGHT LEG DRSG IS INTACT. MARIA R WERE REMOVED AND STERI STRIPS PLACED BY DR GUTIÉRREZ YESTERDAY AM. BARRIER CREAM APPLIED TO COCCYX. PT AGREEABLE TO SUPPOSITORY AND WAS ABLE TO HAVE MOD FORMED STOOL IN BEDPAN. HAS SELF GLUCOSE MONITOR SENSOR TO UPPER RIGHT ARM. PT DID REFUSE TO TURN MOST OF THE NIGHT. SLEPT WELL OTHERWISE. CALL LIGHT IN REACH AND BED ALARM ON.
[2019-08-22 08:00] VITALS: BP 114/63
--- NOTE | 2019-08-22 15:59 | NUR ---
ASSUMMED CARE OF PT AT 0730, PT ALERT AND ORIENTED, PT TRANSFERS PER JANAE LIFT, DENIES NEED FOR PAIN MEDICATION THIS SHIFT, DRESSING INTACT, BARBOSA PATENT AND DRAINING A LARGE AMOUNT OF YELLOW URINE, TAKING FOOD AND FLUIDS WELL, COCCYX WOUND IMPROVING, BARRIER OINTMENT APPLIED, RED, DRY SCALY AREA IN SKIN FOLD ON RIGHT LOWER BACK, BARRIER OINTMENT APPLIED, PT STATES SHE HAS HAD A DRY SENSITIVE AREA IN THAT AREA FOR QUIT A WHILE AND THOUGHT IT WAS A MOLE AND HAS NEVER SEEN THE AREA, PT REPOSTIONED EVERY 2 HOURS IN CHAIR AND BED, ON SPECIALTY BED, CUSHION IN CHAIR, 02 ON AT 2L WITH SATS OF 98%, PARTICIPATED IN ALL THERAPIES, HOURLY ROUNDING COMPLETED, ASSESSMENT COMPLETE, WILL CONTINUE TO MONITOR.
[2019-08-22 20:25] VITALS: BP 129/57
--- NOTE | 2019-08-22 20:35 | NUR ---
IN [place]S IN BED WATCHING TV. DENIES DISCOMFORT. BARBOSA TO DEPENDENT DRAINAGE WITH YELLOW URINE. ASSISTED WITH TURNING TO HER SIDE. CALL LIGHT WITHIN REACH.
--- NOTE | 2019-08-23 05:13 | NUR ---
RESTED QUIETLY. HOURLY ROUNDING IN PROGRESS.
[2019-08-23 06:37] LABS: HEMATOCRIT 29.8 % (37.0-47.0); HEMOGLOBIN 9.8 gm/dL (12.0-15.0); MCH 28.1 pg (26.0-34.0); MCHC 32.8 g/dL (28.0-37.0); MCV 85.8 fL (80.0-100.0); MPV 8.4 fl. (7.2-11.1); RBC 3.48 mil/uL (4.20-5.00); RDW-CV 14.2 % (10.5-14.5); WBC 8.6 thou/uL (4.0-11.0)
[2019-08-23 06:52] LABS: ALBUMIN 2.7 g/dL (3.4-5.0); CALCIUM 8.1 mg/dL (8.5-10.1); CREATININE 0.9 mg/dL (0.6-1.3); POTASSIUM 4.4 mmol/L (3.5-5.1); TOTAL BILIRUBIN 0.4 mg/dL (<0.1-1.0); TOTAL PROTEIN 6.7 g/dL (6.4-8.2)
[2019-08-23 08:09] VITALS: BP 141/54
--- NOTE | 2019-08-23 12:41 | NUR ---
Nutrition: Pt is eating meals well and wound is improving. However, albumin decreasing. Pt agreed to try Rashid orange BID - RD ordered.
--- NOTE | 2019-08-23 14:00 | NUR ---
MAX and Dr Maharaj met with pt and pt son to review team conference summary and plan for pt to remain on rehab unit to continue therapies a couple more days and pt to dc on Wednesday. MAX and Dr Maharaj discussed team recommending pt consider SNF due to pt needing assistance of 2 people with mobility and ADLs. Pt and pt son said that the plan will be home and they are refusing SNF. Pt family will complete family training and will provide needed assistance at home. Pt in need of hospital bed and andrew lift; pt son was checking on their wc at home and if that is not the right size, pt will need wc at dc. Team aware of pt decision for dc home with assist and DME. SW to continue to follow to assist with safe dc planning for Friday 08/25.
--- NOTE | 2019-08-23 17:03 | NUR ---
ASSUMMED CARE OF PT AT O730, PT ALERT AND ORIENTED, TRANSFERS PER JANAE LIFT, TAKING FOOD AND FLUIDS, PT DENIES NEED FOR PAIN MEDS THIS SHIFT, DRESSING DRY AND INTACT, SOME DRAINAGE NOTED ON DRESSING, PT REPOSTIONED EVERY 2 HOURS, COCCYX AREA IMPROVING, DRY RED AREA IN BACK FOLD, BARRIER OINTMENT APPLIED TO BOTH AREAS, BARBOSA PATENT AND DRAINING SOILA URINE, NO BM THIS SHIFT, FAMILY IS COMING FOR TRAINING TOMORROW, NURSING NEEDS TO EDUCATE FAMILY ON TURNING, PLACING BEDPAN, AND OTHER PATINET NEEDS THAT FAMILY WILL NEED TO DO, PT DID HAVE NOSEBLEED THIS SHIFT, TAKING FOOD AND FLUIDS WELL, PARTICIPATED IN ALL THERAPIES, HOURLY ROUNDING COMPLETED, ASSESSMENT COMPLETE, WILL CONTINUE TO MONITOR.
[2019-08-23 19:33] VITALS: BP 125/39
--- NOTE | 2019-08-23 20:35 | NUR ---
IN [place]IS'S WATCHING TV. BARBOSA TO DEPENDENT DRAINAGE WITH CLOUDY/YELLOW URINE. ASSISTED WITH REPOSITIONING. CALL LIGHT WITHIN REACH.
--- NOTE | 2019-08-24 04:47 | NUR ---
RESTED QUIETLY IN BETWEEN TURNS WITH 02 NASAL CANNULA AT TWO LITERS. HOURLY ROUNDING IN PROGRESS.
[2019-08-24 08:27] VITALS: BP 127/46
--- NOTE | 2019-08-24 13:06 | NUR ---
SW faxed referral and order to [facility] for wc, hospital bed, and andrew lift. SW to continue to follow to arrange pt choice for HH and assist with finalizing safe dc plan for dc on Wednesday to home with family.
--- NOTE | 2019-08-24 14:56 | NUR ---
WOUND NURSE: PATIENT SEEN TO ADDRESS NEW WOUND ON RIGHT LOWER BACK AND WHICH APPARENTLY OCCURRED TODAY. PRESENTS AND A LATERAL LINEAR LESION MEASURING 1.0 X 5.0 X 0.1 CM. LESION IS PARTIAL THICKNESS WITH PINK TO PALE PINK NONGRANULATING TISSUE IN THE WOUND BED. THERE IS A SMALL AMOUNT OF SEROUS DRAINAGE PRESENT. WOUND EDGES ARE LIGHT PINK AND NOT WARM TO TOUCH. PATIENT REPORTING MILD ITCHING. CLEANSED WITH SOAP AND WATER, RINSED, THEN PATTED DRY. APPLIED SKIN PREP TO INTACT PERIWOUND TISSUE. COVERED WITH AQUACEL AG UNDER EXUDERM LP CUT TO FIT, THEN SECURED IN PLACE WITH SURESITE TRANSPARENT DRESSING. LESION APPEARS TO BR FRICTION RELATED AND POSSIBLE RELATED TO LIFT PAD DURING TRANSFERS, BUT UNCERTAIN. PATIENT INSTRUCTED TO OFFLOAD THE LESION WHEN LYING IN BED MUCH POSSIBLE. SHE AGREES TO THIS.
[2019-08-24 21:00] VITALS: BP 138/50
[2019-08-25 04:16] LABS: HEMATOCRIT 27.5 % (37.0-47.0); HEMOGLOBIN 9.3 gm/dL (12.0-15.0); MCH 28.8 pg (26.0-34.0); MCHC 33.7 g/dL (28.0-37.0); MCV 85.3 fL (80.0-100.0); MPV 8.5 fl. (7.2-11.1); RBC 3.22 mil/uL (4.20-5.00); RDW-CV 14.2 % (10.5-14.5); WBC 8.3 thou/uL (4.0-11.0)
[2019-08-25 04:30] LABS: ALBUMIN 2.5 g/dL (3.4-5.0); CALCIUM 7.8 mg/dL (8.5-10.1); CREATININE 1.1 mg/dL (0.6-1.3); MAGNESIUM 1.8 mg/dL (1.8-2.4); POTASSIUM 3.9 mmol/L (3.5-5.1); TOTAL BILIRUBIN 0.4 mg/dL (<0.1-1.0); TOTAL PROTEIN 6.1 g/dL (6.4-8.2)
--- NOTE | 2019-08-25 05:01 | NUR ---
ASSUMED CARES AT 1920. ALERT AND ORIENTED. PLEASANT. C/O RIGHT KNEE PAIN. NORCO GIVEN. RIGHT LEG DRSG INTACT. DRSG TO RIGHT BACK INTACT. BARBOSA CATHETER DD DARK YELLOW URINE. NYSTATIN POWDER TO REDNESS UNDER BREASTS AND PANNUS. PT TURNED ONTO SIDES OVERNIGHT. CALL LIGHT IN REACH.
[2019-08-25 09:00] VITALS: BP 135/60
[2019-08-25] MEDS ORDERED: NYSTATIN 100,0015 G1 TOP (10:07)
[2019-08-25] MEDS ORDERED: DILTIAZEM 24HR180 M1 PO (10:07)
[2019-08-25] MEDS ORDERED: ZOLOFT100 MG PO (10:07)
[2019-08-25] MEDS ORDERED: COMBIVENT RESPIM4 GM INH (10:07)
[2019-08-25] MEDS ORDERED: PRED FORTE5 ML OPHTHALMIC (10:07)
[2019-08-25] MEDS ORDERED: SYNTHROID200 MCG PO (10:07)
[2019-08-25] MEDS ORDERED: KLOR-CON 1010 MEQ PO (10:07)
[2019-08-25] MEDS ORDERED: HUMALOG100 UNIT/1 SUBQ (10:07)
[2019-08-25] MEDS ORDERED: ELIQUIS5 MG PO (10:07)
[2019-08-25] MEDS ORDERED: NOVOLOG FL100 UNIT/M SUBQ (10:07)
[2019-08-25] MEDS ORDERED: VITAMIN B-121000 MCG PO (10:07)
[2019-08-25] MEDS ORDERED: COZAAR 50 MG TA50 M1 PO (10:07)
[2019-08-25] MEDS ORDERED: ONDANSETRON HCL4 M2 PO (10:07)
[2019-08-25] MEDS ORDERED: HYDROCODON-ACE1 EAC7 PO (10:07)
[2019-08-25] MEDS ORDERED: CRESTOR20 MG PO (10:07)
[2019-08-25] MEDS ORDERED: LASIX 40 MG TAB40 M2 PO (10:07)
[2019-08-25] MEDS ORDERED: PRIMIDONE 250M250 MG PO (10:07)
[2019-08-25] MEDS ORDERED: SINGULAIR 10 MG10 M1 PO (10:07)
[2019-08-25] MEDS ORDERED: TESSALON PERLE100 MG PO (10:07)
[2019-08-25] MEDS ORDERED: CALCIUM CARBON500 MG PO (10:07)
[2019-08-25] MEDS ORDERED: COLACE100 MG PO (10:07)
[2019-08-25] MEDS ORDERED: GLUCOPHAGE XR500 M1 PO (10:07)
[2019-08-25] MEDS ORDERED: BUSPIRONE HCL10 MG PO (10:07)
[2019-08-25] MEDS ORDERED: TRESIBA FL200 UNIT/1 SUBQ (10:07)
[2019-08-25] MEDS ORDERED: DEMADEX20 MG PO (10:07)
[2019-08-25] MEDS ORDERED: TOPROL XL50 MG PO (10:07)
[2019-08-25 11:15] VITALS: BP 135/60
--- NOTE | 2019-08-25 11:27 | NUR ---
WOUND NURSE: PATIENT SEEEN FOR FOLLOW UP PRIOR TO DISCHARGE TO HOME TOMORROW. ADDED WOUND CARE INSTRUCTIONS INTO DISCHARGE INSTRUCTIONS. PATIENT AND HER SISTER ALSO PROVIDED INSTRUCTION ON CARE AND NUTRITIONAL NEEDS TO PROMOTE HEALING. PROVIDED PATIENT AND FAMILY WITH BUSINESS CARD FOR [facility] FOR IF THEY CHOOSE TO FOLLOW UP IN THE FUTURE. PATIENT IS HOMEBOUND AND UNABLE TO BE TRANSPORTED EXCEPT THROUGH HANDICAP TRANSPORTATION AT THIS TIME. INSERTED DISCHARGE INSTRUCTION FOR HOME HEALTH WOUND CARE TO FOLLOW PATIENT.
--- NOTE | 2019-08-25 15:01 | NUR ---
Pt to dc home with family tomorrow, Friday 08/25. SW faxed updated info needed to [facility] for DME and they are to call son to arrange time of delivery to pt home for hospital bed, wc, and andrew lift. SW discussed HH options and arranged with pt/family preference of [facility], they accepted referral and will contact pt family to schedule visits. SW spoke with pt and pt family, all in agreement with plan. If ambulance transport needed, fax ambulance transfer form and call to confirm time when ready for dc.
[2019-08-25 15:49] VITALS: BP 135/60
--- NOTE | 2019-08-25 16:31 | NUR ---
ALERT AND ORIENTED X4. UP WITH 2 ASSIST, AND JANAE LIFT. USING PO PAIN MEDICATION TO HELP WITH RIGHT KNEE PAIN. DRESSING DRY AND INTACT OVER RIGHT HIP INCISION. DRESSING CHANGED TO WOUND ON RIGHT BACK. BARBOSA CATHETER PATENT WITH CLEAR YELLOW URINE. USING SPECIALTY BED. REMAINS ON 2L/NC TO KEEP O2 SAT97%. USES CALL LIGHT WITHIN REACH. BED ALARM AND CHAIR ALARM USED.
--- NOTE | 2019-08-25 19:13 | NUR ---
ORTHO 'S OFFICE WAS CALLED THEY SAID TO HAVE FAMILY MAKE AN APPTMENT THIS NEXT WEEK TO GET REST OF MARIA R OUT. DR ALSO SAID THEY DID NOT NEED TO CHANGE DRESSING THAT THEY WOULD CHANGE IT WHEN PATIENT CAME TO DR NOBLE AND TAKE OUT REST OF MARIA R. ALREADY HAD XRAY OF RIGHT KNEE ON 08/20 AND IT WAS OK. FAMILY AND PATIENT NOTIFIED OF NEED TO MAKE DR APPT FOR NEXT WEEK TO GET MARIA R OUT AND NO NEED TO CHANGE DRESSING UNTIL DR APPT. .
[2019-08-25 19:30] VITALS: BP 156/58
--- NOTE | 2019-08-26 00:40 | NUR ---
ASSUMED CARE AT 1930. PATIENT RESTING IN BED. DSSG TO RT LEG C/D/I. DSSG TO RT BACK C/D/I. HEELS OFFLOADED WITH PILLOWS, PILLOW BETWEEN LEGS FOR SUPPORT. WAS POSITIONED WITH WEDGE AT BEGINNING OF SHIFT, AT MIDNIGHT REFUSED WEDGE AND REQUESTED PILLOW. POSITIONED WITH PILLOW. BARBOSA DRAINING SOILA URINE. TAKES PILLS ONE AT A TIME WITH TIME SPACED BETWEEN EACH PILL. O2 2L/NC. PATIENT STATES SON TOOK CPAP HOME TO "FIX IT." DOES OWN BLOOD SUGARS, CHARTED. ON SPECIALTY BED. ASSISTED WITH TURNS. BED ALARM ON. CALL LITE IN REACH. HOURLY ROUNDS CONTINUE.
--- NOTE | 2019-08-26 05:06 | NUR ---
SLEPT MOST OF THE NIGHT. AWAKENED FOR TURNS. NO C/O PAIN. BARBOSA DRAINING SOILA URINE. DRESSINGS C/D/I. O2 2L/NC. NO BM THIS SHIFT. DECLINED A TURN PREFERING TO LIE ON BACK DESPITE EDUCATION. WILL CONTINUE TURNS Q2H. NYSTATIN TO RT BREAST FOLD AND RT PANNUS FOLD. BED ALARM ON. CALL LITE IN REACH. HOURLY ROUNDS CONTINUE.
[2019-08-26 08:00] VITALS: BP 131/55
[2019-08-26 11:29] VITALS: BP 135/60
[2019-08-26 14:48] VITALS: BP 135/60
--- NOTE | 2019-08-26 14:52 | NUR ---
0800 ASSESSMENT COMPLETED DOCUMENTED. PATIENT AWAKE/ALERT AND ANXIOUS TO GO HOME TODAY. BARBOSA CATH EMPTIED WITH 500CC DARK YELLOW URINE. 02 ON AT 2LPM/NC, NO RESP DISTRESS NOTED. RIGHT LATERAL LE INCISIONAL DRESSING IS INTACT. 1035 [facility] CALLED AND SET UP TRANSPORT FOR [id number]. 1211 DC INSTRUCTIONS WENT OVER WITH PATIENT AND SISTER. MEDS INSTRUCTED ON ONE BY ONE. HOME HEALTH TO CALL AND SET UP ADMISSION FOR IN THE HOME. RX TO BE PICKED UP AND REFILLS CALLED IN.....SISTER VERBALIZED UNDERSTANDING AND IS GOING TO GO BY PHARMACY ON THE WAY TO PATIENT'S HOME. JANAE LIFT AND HOSPITAL BED ARE ALREADY AT HOME. 1300 PATIENT ASSISTED WITH DRESSING, AND TRANSFERRED TO HER NEW W/C WITH USE OF JANAE LIFT. BARBOSA CATHETER EMPTIED WITH 1200 CC OBTAINED OF DARK YELLOW URINE. 1340 PATIENT DC'D PER W/C WITH 02 ON TO W/C TRANSPORT VAN ACCOMPANIED BY SISTER. ALL BELONGINGS PACKED BY SISTER AND SHE IS GOING TO MEET PATIENT AT HER HOME. PATIENT IN GOOD CONDITION, THANKED UNIT FOR ALL THE CARE SHE RECEIVED AND EXPRESSED HER HAPPINESS TO GO HOME.
== END 2019-08-26 13:40 | disposition home or self-care (01) | DRG 533 ==
LOC: M.REH 20:43 → M.TBA-ER 20:43 → M.REH 20:50
PROVIDERS: Internal Medicine; ADMIT Physical Medicine & Rehabilitation; ATTEND Physical Medicine & Rehabilitation
PROC: 5A09357 Assistance with Respiratory Ventilation, Less than 24 Consecutive Hours, Continuous Positive Airway Pressure (ICD-10-PCS; principal; 2019-08-10)
PROC: 5A09357 Assistance with Respiratory Ventilation, Less than 24 Consecutive Hours, Continuous Positive Airway Pressure (ICD-10-PCS; 2019-08-16)
PROC: 5A09357 Assistance with Respiratory Ventilation, Less than 24 Consecutive Hours, Continuous Positive Airway Pressure (ICD-10-PCS; 2019-08-25)
DX: S72.401A Unspecified fracture of lower end of right femur, initial encounter for closed fracture (principal); J96.21 Acute and chronic respiratory failure with hypoxia; G93.41 Metabolic encephalopathy; J44.1 Chronic obstructive pulmonary disease with (acute) exacerbation; I50.42 Chronic combined systolic (congestive) and diastolic (congestive) heart failure; Z68.43 Body mass index [BMI] 50.0-59.9, adult; F32.9 Major depressive disorder, single episode, unspecified; G47.33 Obstructive sleep apnea (adult) (pediatric); E66.01 Morbid (severe) obesity due to excess calories; E03.9 Hypothyroidism, unspecified; I11.0 Hypertensive heart disease with heart failure; E53.8 Deficiency of other specified B group vitamins; I35.0 Nonrheumatic aortic (valve) stenosis; I34.0 Nonrheumatic mitral (valve) insufficiency; E11.65 Type 2 diabetes mellitus with hyperglycemia; E11.40 Type 2 diabetes mellitus with diabetic neuropathy, unspecified; Z79.01 Long term (current) use of anticoagulants; W18.39XA Other fall on same level, initial encounter; Y93.89 Activity, other specified; Y92.89 Other specified places as the place of occurrence of the external cause; Y99.8 Other external cause status; Z88.2 Allergy status to sulfonamides; Z88.6 Allergy status to analgesic agent; Z91.041 Radiographic dye allergy status; Z91.012 Allergy to eggs; Z91.040 Latex allergy status

== ENCOUNTER 2019-09-14 17:20 | Emergency (ER) | payer MEDICARE, OTHER ==
[~2019-09-14] VITALS: Ht 157.5 cm; Wt 113.4 kg
[~2019-09-14 17:20] MED LIST changes: +GLUCOPHAGE XR500 M1 PO
[2019-09-14 17:40] LABS: URINE BILIRUBIN NEGATIVE (Negative); URINE BLOOD 3+ (Negative); URINE CLARITY SL CLOUDY; URINE COLOR YELLOW; URINE GLUCOSE-RANDOM NEGATIVE (Negative); URINE KETONES NEGATIVE (Negative); URINE LEUKOCYTES-REFLEX 2+ (Negative); URINE NITRITE-REFLEX NEGATIVE (Negative); URINE PROTEIN TRACE (Negative); URINE UROBILINOGEN 0.2 E.U./dl (0.2-1.0)
[2019-09-14 17:47] LABS: ABSOLUTE BASOPHILS 0.1 thou/uL (0.0-0.2); ABSOLUTE EOSINOPHILS 0.3 thou/uL (0.0-0.7); ABSOLUTE LYMPHOCYTES 3.1 thou/uL (0.8-5.3); ABSOLUTE MONOCYTES 1.1 thou/uL (0.0-1.2); ABSOLUTE NEUTROPHILS 7.5 thou/uL (1.6-8.1); BASOPHILS 1.1 %; EOSINOPHILS 2.4 %; HEMATOCRIT 36.2 % (37.0-47.0); HEMOGLOBIN 12.1 gm/dL (12.0-15.0); LYMPHOCYTES 25.5 %; MCH 28.7 pg (26.0-34.0); MCHC 33.4 g/dL (28.0-37.0); MCV 85.9 fL (80.0-100.0); MONOCYTES 8.8 %; NUCLEATED RBCS 0 /100WBC; PLATELET COUNT* 379 thou/uL (150-400); POLYS 62.2 %; RBC 4.21 mil/uL (4.20-5.00); RDW-CV 14.4 % (10.5-14.5); WBC 12.1 thou/uL (4.0-11.0)
[2019-09-14 17:57] LABS: CALCIUM 8.6 mg/dL (8.5-10.1); CREATININE 1.2 mg/dL (0.6-1.3); POTASSIUM 3.6 mmol/L (3.5-5.1)
[2019-09-14] MEDS ORDERED: XARELTO1 EACH PO (17:57)
[2019-09-14 17:59] LABS: BACTERIA-REFLEX >30 Many /HPF (None Seen); CRYSTALS None Seen /LPF (None Seen); HYALINE CASTS 0-3 Few /LPF (None Seen); MUCUS 0-3 Light strn/LPF (None Seen); SQUAMOUS 4-10 Moderate /LPF (0-3); URINE WBC-REFLEX >25 Many /HPF (0-5)
[2019-09-14 18:01] LABS: ALBUMIN 3.2 g/dL (3.4-5.0); TOTAL BILIRUBIN 0.2 mg/dL (<0.1-1.0); TOTAL PROTEIN 7.2 g/dL (6.4-8.2)
[2019-09-14] MEDS ORDERED: MACROBID 100 M100 M1 PO (18:33)
[2019-09-14 20:00] VITALS: BP 126/55
== END 2019-09-14 20:24 | disposition home or self-care (01) ==
LOC: M.ERS 17:20
PROVIDERS: Personal Emergency Response Attendant
DX: N39.0 Urinary tract infection, site not specified (principal); E86.9 Volume depletion, unspecified; G47.33 Obstructive sleep apnea (adult) (pediatric); E03.9 Hypothyroidism, unspecified; E66.01 Morbid (severe) obesity due to excess calories; E11.40 Type 2 diabetes mellitus with diabetic neuropathy, unspecified; Z88.5 Allergy status to narcotic agent; Z91.040 Latex allergy status; Z88.2 Allergy status to sulfonamides; Z91.012 Allergy to eggs; Z79.899 Other long term (current) drug therapy; Z79.4 Long term (current) use of insulin

== ENCOUNTER 2019-09-20 13:48 | Emergency (ER) | payer MEDICARE, OTHER ==
[~2019-09-20] VITALS: Ht 157.5 cm; Wt 113.4 kg
[~2019-09-20 13:48] MED LIST changes: +XARELTO1 EACH PO
[2019-09-20] MEDS ORDERED: SENOKOT-S TABL1 EACH PO (14:26)
[2019-09-20 16:44] VITALS: BP 140/88
== END 2019-09-20 16:45 | disposition home or self-care (01) ==
LOC: M.ERS 13:48
DX: S30.810A Abrasion of lower back and pelvis, initial encounter (principal); K59.00 Constipation, unspecified; G47.33 Obstructive sleep apnea (adult) (pediatric); E66.01 Morbid (severe) obesity due to excess calories; J96.11 Chronic respiratory failure with hypoxia; J44.9 Chronic obstructive pulmonary disease, unspecified; E11.40 Type 2 diabetes mellitus with diabetic neuropathy, unspecified; E03.9 Hypothyroidism, unspecified; E11.9 Type 2 diabetes mellitus without complications; I50.30 Unspecified diastolic (congestive) heart failure; Z79.4 Long term (current) use of insulin; Z68.42 Body mass index [BMI] 45.0-49.9, adult; Z87.440 Personal history of urinary (tract) infections; Z88.5 Allergy status to narcotic agent; Z91.040 Latex allergy status; Z88.2 Allergy status to sulfonamides; Z88.8 Allergy status to other drugs, medicaments and biological substances; X58.XXXA Exposure to other specified factors, initial encounter; Y93.89 Activity, other specified; Y92.89 Other specified places as the place of occurrence of the external cause; Y99.8 Other external cause status

== ENCOUNTER 2019-09-27 08:47 | Inpatient (IN) | payer MEDICARE, OTHER ==
[~2019-09-27] VITALS: Ht 157.5 cm; Wt 113.4 kg
--- NOTE | ~2019-09-27 | EMS ---
[address] [place] [address] EMS Patient Care Report Name: MOUSTAPHA HOLM Room: [facility]#: [id number] Admission: 09/27/19 Attend Phys: Discharge: Date of : 43 Report #: [id number] THIS REPORT FOR: //name// Report Transmitted: 09/27/2019 08:17 EMS Care Summary NAM [place] [facility] Incident [id number] @ 09/27/2019 08:06 Incident Location [address] [place] [address] Patient MOUSTAPHA HOLM Female, 74 Years 1945 Patient Address [address] [place] [address] Patient History Chronic Obstructive Pulmonary Disease (COPD),Endocrine Condition - Other, Patient Allergies , Chief Complaint Device/Equipment problem Disposition Transported Lights/[facility] Dispatch Reason Breathing Problem Transported To [facility] Narrative Dispatched to address noted for shortness of breath. [facility] en route at time noted. Arrived after IFD and found patient in her hospital bed, in the living room. Patients family stated that her main complaint today was that her catheter was not producing any urine for the last 24 hours. Patient was GCS 15 and stated no pain. Patient stated she did feel the need to urinate but could not. No UTI symptoms that the patient stated to me. Patient normally goes to [address] [place] [address] EMS Patient Care Report Name: MOUSTAPHA HOLM Room: [facility]#: [id number] Admission: 09/27/19 Attend Phys: Discharge: Date of : 43 Report #: [id number] [facility] for care. Patient was moved to stretcher and then buckled in. Once in ambulance, vitals where taken and where as noted. Patient had no complaints at this time. Patient wears home O2 and O2 was continued throughout care. While en route, vitals where taken as noted. Nothing eventful was noted during transport. Radio report given at time noted. Arrived and took patient to room. Patient was moved to bed and RN was given verbal report. RN signed for patient and patient care. 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 - Medication - 2.000 Liters per Minute (l/min [fluid]) - Nasal Cannula,Response: Unchanged 08:14,Call Received 08:05,Dispatch Notified 08:05,Psap Call 08:06,Dispatched 08:06,En Route 08:13,On Scene 08:14,At Patient 08:22,BP: 182/72 M,PULSE: 100,RR: 16 R,SPO2: Ox,ETCO2: ,BG: ,PAIN: ,GCS: , 08:22,BP: / M,PULSE: ,RR: R,SPO2: Ox,ETCO2: ,BG: ,PAIN: ,GCS: 15, 08:22,Depart Scene 08:28,BP: / M,PULSE: ,RR: R,SPO2: Ox,ETCO2: ,BG: ,PAIN: ,GCS: , 08:28,BP: / M,PULSE: ,RR: R,SPO2: 99 Ox,ETCO2: ,BG: ,PAIN: ,GCS: , 08:37,BP: 176/85 M,PULSE: 98,RR: 14 R,SPO2: Ox,ETCO2: ,BG: ,PAIN: ,GCS: , 08:37,BP: / M,PULSE: ,RR: R,SPO2: Ox,ETCO2: ,BG: ,PAIN: ,GCS: 15, 08:45,At Destination 08:52,[place] [address] EMS Patient Care Report Name: MOUSTAPHA HOLM [id number] Admission: 09/27/19 Attend Phys: Discharge: Date of : 43 Report #: [id number] Disclaimer v1.1 Copyright 2020 [employer] This EMS Care Summary contains data elements from the applicable legal record (which may be displayed differently). It is designed to provide pertinent information for the following purposes: continuity of care, clinical quality, and state data reporting. The complete legal record is available to ED staff and administrators of the receiving hospital in [employer] Patient Tracker. All data is provided "as is."
[~2019-09-27 08:47] MED LIST changes: +SENOKOT-S TABL1 EACH PO
[2019-09-27 08:51] VITALS: BP 165/79
[2019-09-27 09:26] LABS: ABSOLUTE EOSINOPHILS 0.3 thou/uL (0.0-0.7); ABSOLUTE LYMPHOCYTES 2.4 thou/uL (0.8-5.3); ABSOLUTE MONOCYTES 0.7 thou/uL (0.0-1.2); ABSOLUTE NEUTROPHILS 8.1 thou/uL (1.6-8.1); BASOPHILS 0.2 %; EOSINOPHILS 2.4 %; HEMATOCRIT 36.6 % (37.0-47.0); HEMOGLOBIN 12.2 gm/dL (12.0-15.0); LYMPHOCYTES 20.8 %; MCH 28.6 pg (26.0-34.0); MCHC 33.4 g/dL (28.0-37.0); MCV 85.5 fL (80.0-100.0); MONOCYTES 6.3 %; MPV 9.2 fl. (7.2-11.1); NUCLEATED RBCS 0 /100WBC; PLATELET COUNT* 326 thou/uL (150-400); POLYS 70.3 %; RBC 4.28 mil/uL (4.20-5.00); RDW-CV 14.1 % (10.5-14.5); WBC 11.5 thou/uL (4.0-11.0)
[2019-09-27 09:39] LABS: CALCIUM 9.1 mg/dL (8.5-10.1); CREATININE 0.9 mg/dL (0.6-1.3); POTASSIUM 4.1 mmol/L (3.5-5.1)
--- NOTE | 2019-09-27 09:40 | NUR ---
PT GIVEN WATER WITH OK FROM DR. NARANJO. PT STATING SHE HAS NOT BEEN DRINKING DUE TO HER BARBOSA NOT DRAINING.
[2019-09-27 10:44] LABS: URINE BILIRUBIN NEGATIVE (Negative); URINE BLOOD 3+ (Negative); URINE CLARITY CLEAR; URINE COLOR YELLOW; URINE GLUCOSE-RANDOM TRACE (Negative); URINE KETONES NEGATIVE (Negative); URINE PROTEIN 2+ (Negative); URINE UROBILINOGEN 0.2 E.U./dl (0.2-1.0)
[2019-09-27 10:52] LABS: CASTS None Seen /LPF (None Seen); CRYSTALS None Seen /LPF (None Seen); SQUAMOUS 0-3 Few /LPF (0-3); URINE LEUKOCYTES-REFLEX 2+ (Negative); URINE NITRITE-REFLEX POSITIVE (Negative); URINE RBC 0-2 Rare /HPF (0-2); URINE WBC-REFLEX >25 Many /HPF (0-5)
--- NOTE | 2019-09-27 12:15 | NUR ---
PT IS NOT ABLE TO AMBULATE DUE TO PREVIOUS RIGHT FEMUR FX. PT HAS A BARBOSA CATH IN DUE TO NOT BEING ABLE TO GET UP. PT STATES SHE IS SUPPOSED TO DO THEAPY AT HOME BUT DOES NOT ALWAYS DO SO AND SHE SAYS SHE BECOMES STIFF. DR. NARANJO NOTIFIED.
--- NOTE | 2019-09-27 12:35 | NUR ---
PT GIVEN LUNCH TRAY
[2019-09-27 18:00] VITALS: BP 163/82
[2019-09-27 18:35] VITALS: BP 166/88
--- NOTE | 2019-09-27 19:04 | NUR ---
PATIENT ARRIVED TO UNIT FROM ED AT 1815. ALERT AND ORIENTED X4. ADMISSION HISTORY AND ASSESSMENT COMPLETED AND CHARTED. VSS ON 2 LITERS. NO COMPLAINTS OF PAIN OR SOA. BARBOSA IN PLACE AND DRAINING YELLOW URINE. FALL PRECAUTIONS IN PLACE. CALL LIGHT WITHIN REACH. HOURLY ROUNDS COMPLETED. WILL CONTINUE WITH PLAN OF CARE.
[2019-09-27 21:20] VITALS: BP 132/69
--- NOTE | 2019-09-28 04:35 | NUR ---
PATIENT HAS REMAINED ALERT AND ORIENTED X 4 THROUGHOUT THE SHIFT AND RESTING QUIETLY ON HOURLY ROUNDS. TURNED WITH ASSIST. WOUND RIGHT LAT BACK ASSESSED WITH DRESSING CHANGE DURING THE NIGHT. PATIENT WAS TOLD IT WAS A PRESSURE WOUND FROM LAST HOSPITALIZATION. PHOTOS IN CHART. IVF'S PER ORDER. VITAL SIGNS STABLE. CONTINUE TO ORDER.
[2019-09-28 05:31] LABS: ABSOLUTE BASOPHILS 0.1 thou/uL (0.0-0.2); ABSOLUTE EOSINOPHILS 0.4 thou/uL (0.0-0.7); ABSOLUTE LYMPHOCYTES 2.1 thou/uL (0.8-5.3); ABSOLUTE MONOCYTES 0.8 thou/uL (0.0-1.2); BASOPHILS 0.5 %; EOSINOPHILS 3.4 %; HEMATOCRIT 33.9 % (37.0-47.0); HEMOGLOBIN 11.3 gm/dL (12.0-15.0); LYMPHOCYTES 20.6 %; MCH 28.6 pg (26.0-34.0); MCHC 33.4 g/dL (28.0-37.0); MCV 85.6 fL (80.0-100.0); MONOCYTES 7.7 %; MPV 9.4 fl. (7.2-11.1); NUCLEATED RBCS 0 /100WBC; PLATELET COUNT* 316 thou/uL (150-400); POLYS 67.8 %; RBC 3.96 mil/uL (4.20-5.00); RDW-CV 14.2 % (10.5-14.5); WBC 10.4 thou/uL (4.0-11.0)
[2019-09-28 05:44] LABS: CALCIUM 8.1 mg/dL (8.5-10.1); CREATININE 0.8 mg/dL (0.6-1.3); POTASSIUM 3.5 mmol/L (3.5-5.1)
[2019-09-28 08:57] VITALS: BP 134/63
--- NOTE | 2019-09-28 15:47 | NUR ---
cm completed initial assessment to discuss d/c plan. pt i a&ox4. pt lives alone; however she has 6 children and a sister, Adrianna, so someone is w/her / per pt and Orlando. Orlando lives 4 houses down. [place] informed sw his aunt and him had conversation today to discuss how to keep pt motivated to paricipate in therapy and to tell the other siblings to ensure they are getting the pt up in her w/c. pt has w/c walker and a lift. pt [facility], cm spk w/German [phone] to confirm resumption of service. German stated he would rj cm back. pt stated she does not want to go to snf. cm to cont to follow.
[2019-09-28 16:38] VITALS: BP 155/65
--- NOTE | 2019-09-28 18:11 | NUR ---
PATIENT ALERT AND ORIENTED X4. ASSESSMENT COMPLETED AND CHARTED. VSS ON ROOM AIR. NO COMPLAINTS OF PAIN, NAUSEA OR SOA THIS SHIFT. PATIENT NON WEIGHT BEARING RLE. FLUIDS INFUSED ORDERED THEN SALINE LOCKED. ACCUCHECK AND INSULIN ORDERED. FALL PRECAUTIONS IN PLACE. CALL LIGHT WITHIN REACH. HOURLY ROUNDS COMPLETED. WILL CONTINUE PLAN OF CARE.
[2019-09-28 21:00] VITALS: BP 129/55
[2019-09-29 04:06] LABS: ABSOLUTE BASOPHILS 0.1 thou/uL (0.0-0.2); ABSOLUTE EOSINOPHILS 0.5 thou/uL (0.0-0.7); ABSOLUTE LYMPHOCYTES 2.7 thou/uL (0.8-5.3); ABSOLUTE MONOCYTES 0.9 thou/uL (0.0-1.2); ABSOLUTE NEUTROPHILS 7.1 thou/uL (1.6-8.1); BASOPHILS 0.9 %; EOSINOPHILS 4.1 %; HEMATOCRIT 34.4 % (37.0-47.0); HEMOGLOBIN 11.4 gm/dL (12.0-15.0); LYMPHOCYTES 24.3 %; MCH 28.6 pg (26.0-34.0); MCHC 33.2 g/dL (28.0-37.0); MCV 86.2 fL (80.0-100.0); MONOCYTES 7.6 %; MPV 9.5 fl. (7.2-11.1); NUCLEATED RBCS 0 /100WBC; PLATELET COUNT* 330 thou/uL (150-400); POLYS 63.1 %; RBC 3.99 mil/uL (4.20-5.00); RDW-CV 14.6 % (10.5-14.5); WBC 11.2 thou/uL (4.0-11.0)
[2019-09-29 04:28] LABS: ALBUMIN 2.9 g/dL (3.4-5.0); CALCIUM 8.3 mg/dL (8.5-10.1); CREATININE 1.1 mg/dL (0.6-1.3); POTASSIUM 3.7 mmol/L (3.5-5.1); TOTAL BILIRUBIN 0.3 mg/dL (<0.1-1.0); TOTAL PROTEIN 6.7 g/dL (6.4-8.2)
--- NOTE | 2019-09-29 05:26 | NUR ---
PT REPORTS NO PAIN, NAUSEA, DISCOMFORT. BARBOSA STILL IN PLACE, OUTPUT CLEAR YELLOW URINE. O2 - 2L. USES BEDPAN AT NIGHT. DID NOT GET UP THIS SHIFT. SHE WAS ABLE TO SLEEP ALL NIGHT. RECEIVED ALL MEDS SCHEDULED. LUNGS DIMINISHED. WILL CONTINUE TO MONITOR.
[2019-09-29 09:00] VITALS: BP 125/55
[2019-09-29 13:38] VITALS: BP 121/53
--- NOTE | 2019-09-29 14:56 | NUR ---
cm confirmed w/jason at [facility] will accept pt and plan to begin servive on wednesday; however, this contingent upon pt d/c'g tomorrow and IV ABX does not require HH to go to pt more than 1x/day. pt nurse stated abx will more than likely be changed to PO, so f/u as necessary to see if this is a possibly if needed. orders need to be faxed at d/c - [phone]. pt has been notified and is agreement with this plan.
--- NOTE | 2019-09-29 18:27 | NUR ---
PATEINT ALERT AND ORIENTED X4 THROUGHOUT SHIFT. VSS ON 2 LITERS 02. NO COMPLAINTS OF PAIN OR NAUSEA THIS SHIFT. PATIENT UP TO EDGE OF BED THIS AFTERNOON AND FOR DINNER. NWB ON RLE MAINTAINED. BARBOSA IN PLACE AND DRAINING YELLOW URINE. USING BEDPAN FOR BM'S. ACCUCHECK AND INSULIN ORDERED. PATIENT REFUSING HER MEDICATIONS TODAY STATING THAT SHE DOESNT TAKE ALL OF THESE MEDICATIONS AND SOME OF THEM MAKE HER THROW UP WHEN SHE TAKES THEM. CALL HER SON ALMA TO DISCUSS MEDICATIONS AND HE WAS NOT ENTIRELY SURE WHAT ALL SHE IS TAKING. PATIENT STATES THAT HER HOME HEALTH NURSE IS THE ONE WHO DOES HER MEDS AND THAT SHE HAS HER TAKING TOO MANY THINGS. UNABLE TO GET AN ACCURATE ACCOUNT OF WHAT MEDICATIONS THE PATIENT SHOULD BE TAKING DAILY. FALL PRECAUTIONS IN PLACE. CALL LIGHT WITHIN REACH. HOURLY ROUNDS COMPLETED. WILL CONTINUE WITH PLAN OF CARE.
[2019-09-29 20:00] VITALS: BP 142/57
--- NOTE | 2019-09-30 04:35 | NUR ---
PT A&O X 4, ON 2L BY NC. PT REFUSED SOME PO MEDS. BARBOSA IN PLACE. NWB RLE MAINTAINED. PT SLEEPING/RESTING THROUGH THE NIGHT. REFUSED TURNS. NO C/O PAIN. CALL LIGHT WITHIN REACH. WILL CONTINUE TO MONITOR.
[2019-09-30 08:34] VITALS: BP 157/65
[2019-09-30] MEDS ORDERED: MACROBID 100 M100 M2 PO (10:05)
[2019-09-30] MEDS ORDERED: CIPRO500 M1 PO (10:08)
[2019-09-30 15:38] VITALS: BP 157/65
--- NOTE | 2019-09-30 16:46 | NUR ---
PT DISCHARGED TO HOME WITH HOME HEALTH BY AMBULANCE AT 1642. IV OUT. DENIED PAIN. DENIED N/V. PT STABLE UPON DISCHARGE.
== END 2019-09-30 16:48 | disposition home health service (06) | DRG 699 ==
LOC: M.ERS 08:47 → M.TBA-ER 11:29 → M.ORTHSURG 14:53 → M.TBA-ER 14:53 → M.ORTHSURG 18:13
PROVIDERS: Personal Emergency Response Attendant; ADMIT Internal Medicine; ATTEND Internal Medicine
PROC: 5A09357 Assistance with Respiratory Ventilation, Less than 24 Consecutive Hours, Continuous Positive Airway Pressure (ICD-10-PCS; principal; 2019-09-29)
DX: T83.511A Infection and inflammatory reaction due to indwelling urethral catheter, initial encounter (principal); I50.32 Chronic diastolic (congestive) heart failure; Z68.42 Body mass index [BMI] 45.0-49.9, adult; J96.11 Chronic respiratory failure with hypoxia; F32.9 Major depressive disorder, single episode, unspecified; G47.33 Obstructive sleep apnea (adult) (pediatric); E66.01 Morbid (severe) obesity due to excess calories; R53.81 Other malaise; E03.9 Hypothyroidism, unspecified; E11.40 Type 2 diabetes mellitus with diabetic neuropathy, unspecified; J44.9 Chronic obstructive pulmonary disease, unspecified; R31.9 Hematuria, unspecified; I11.0 Hypertensive heart disease with heart failure; F41.9 Anxiety disorder, unspecified; I08.0 Rheumatic disorders of both mitral and aortic valves; Z95.0 Presence of cardiac pacemaker; Z79.01 Long term (current) use of anticoagulants; Z79.4 Long term (current) use of insulin; Z79.899 Other long term (current) drug therapy; Z88.1 Allergy status to other antibiotic agents; Z91.040 Latex allergy status; Z88.5 Allergy status to narcotic agent; Z88.2 Allergy status to sulfonamides; Z91.018 Allergy to other foods; Z91.09 Other allergy status, other than to drugs and biological substances; Z03.818 Encounter for observation for suspected exposure to other biological agents ruled out

== ENCOUNTER 2019-10-06 19:04 | Emergency (ER) | payer MEDICARE, OTHER ==
[~2019-10-06] VITALS: Ht 157.5 cm; Wt 121.9 kg
[~2019-10-06 19:04] MED LIST changes: +CIPRO500 M1 PO; +MACROBID 100 M100 M2 PO
[2019-10-06 19:45] LABS: URINE BILIRUBIN NEGATIVE (Negative); URINE BLOOD NEGATIVE (Negative); URINE CLARITY CLEAR; URINE COLOR YELLOW; URINE GLUCOSE-RANDOM NEGATIVE (Negative); URINE KETONES NEGATIVE (Negative); URINE LEUKOCYTES-REFLEX TRACE (Negative); URINE NITRITE-REFLEX NEGATIVE (Negative); URINE PROTEIN NEGATIVE (Negative); URINE UROBILINOGEN 0.2 E.U./dl (0.2-1.0)
[2019-10-06 19:57] LABS: BACTERIA-REFLEX 1-9 Few /HPF (None Seen); CASTS None Seen /LPF (None Seen); CRYSTALS None Seen /LPF (None Seen); SQUAMOUS 0-3 Few /LPF (0-3); URINE RBC 0-2 Rare /HPF (0-2); URINE WBC-REFLEX 0-5 Rare /HPF (0-5)
[2019-10-06 22:42] VITALS: BP 179/79
== END 2019-10-06 22:43 | disposition home or self-care (01) ==
LOC: M.ERS 19:04
PROVIDERS: Emergency Medicine
DX: T83.098A Other mechanical complication of other urinary catheter, initial encounter (principal); I50.9 Heart failure, unspecified; E11.9 Type 2 diabetes mellitus without complications; E03.9 Hypothyroidism, unspecified; E66.01 Morbid (severe) obesity due to excess calories; J44.9 Chronic obstructive pulmonary disease, unspecified; G62.9 Polyneuropathy, unspecified; F32.9 Major depressive disorder, single episode, unspecified; Z68.42 Body mass index [BMI] 45.0-49.9, adult; Z79.4 Long term (current) use of insulin; Z91.048 Other nonmedicinal substance allergy status; Z91.040 Latex allergy status; Z91.012 Allergy to eggs; Z88.2 Allergy status to sulfonamides; Z88.6 Allergy status to analgesic agent

== ENCOUNTER → 2019-11-07 | Outpatient (CLI) | payer MEDICARE, OTHER | LOC: M.LAB 11:54 | PROVIDERS: ATTEND Orthopaedic Surgery | DX: S72.351A Displaced comminuted fracture of shaft of right femur, initial encounter for closed fracture (principal); X58.XXXA Exposure to other specified factors, initial encounter; Y93.89 Activity, other specified; Y92.89 Other specified places as the place of occurrence of the external cause; Y99.8 Other external cause status; Z79.899 Other long term (current) drug therapy ==

== ENCOUNTER → 2019-12-19 | Outpatient (CLI) | payer MEDICARE, OTHER | LOC: M.LAB 09:47 | DX: S72.331D Displaced oblique fracture of shaft of right femur, subsequent encounter for closed fracture with routine healing (principal); X58.XXXD Exposure to other specified factors, subsequent encounter; E16.2 Hypoglycemia, unspecified; E55.9 Vitamin D deficiency, unspecified ==